=== PATIENT | female | born 1960 | race Caucasian/White ===

== ENCOUNTER 2016-09-08 14:50 | Emergency (ER) | payer OTHER ==
[~2016-09-08 14:50] MED LIST: LEVO88TA2 PO; LOSA1TAB16 PO
[2016-09-08 14:55] VITALS: BP 177/89
[2016-09-08] MEDS ORDERED: PHENAZOPYRIDINE 200 MG TABLET. PO ONE (15:15)
[2016-09-08] MEDS ORDERED: PHENAZOPYRIDINE 100 MG TABLET. ONE (15:24)
--- NOTE | 2016-09-08 15:40 | ED.ADGEN ---
Past History Past Medical History: CAD, Hypothyroid Past Surgical History: , Hysterectomy Alcohol Use: None Drug Use: None Adult General Chief Complaint Chief Complaint Diarrhea HPI HPI Patient is a 56-year-old female presents with a suprapubic pain, diarrhea for the past 2 days. Patient states pain is migratory worse with bowel movements she denies pain in her symptoms after bowel movements. Reports fever 103 last night. No fever today. Denies, vomiting, flank pain. Patient reports some urinary urgency frequency. Denies bloody stools. Reports dark stools last night , which has since cleared. Remote history of diverticular disease. No recent antibiotics Review of Systems Review of Systems Review symptoms as per history of present illness. Current Medications Current Medications Current Medications Medications (Trade) Dose Ordered Sig/Yanna Start Time Stop Time Status Last Admin Dose Admin Phenazopyridine HCl (Pyridium) 100 mg STK-MED ONCE 09/08/16 15:24 09/08/16 15:25 DC Allergies Allergies Allergies Coded Allergies Type Severity Reaction Last Updated Verified No Known Drug Allergies 03/08/15 No Physical Exam Physical Exam Constitutional: Well developed, well nourished, no acute distress, non-toxic appearance. HENT: Normocephalic, atraumatic, bilateral external ears normal, oropharynx moist, no oral exudates, nose normal. Eyes: PERRLA, EOMI, conjunctiva normal. Neck: Normal range of motion, no tenderness. Cardiovascular:Heart rate regular rhythm, no murmur. Lungs & Thorax: Bilateral breath sounds clear to auscultation. Abdomen: Bowel sounds normal, soft, no tenderness, no masses, no pulsatile masses. Skin: Warm, dry. Back: No tenderness, no CVA tenderness. Extremities: No tenderness, no cyanosis, no clubbing, ROM intact, no edema. Neurologic: Alert and oriented X 3, normal motor function, normal sensory function, no focal deficits noted. Psychologic: Affect normal, judgement normal, mood normal. Current Patient Data Vital Signs Vital Signs Date Time Temp Pulse Resp B/P (MAP) Pulse Ox O2 Delivery O2 Flow Rate FiO2 09/08/16 14:55 98.7 72 16 98 Room Air Lab Results Laboratory Tests Test 09/08/16 15:15 09/08/16 16:30 Urine Collection Type Unknown Urine Color Straw Urine Clarity Hazy Urine pH 5.5 Urine Specific [place] 1.020 Urine Protein Trace (NEG-TRACE) Urine Glucose (UA) Neg mg/dL (NEG) Urine Ketones (Stick) Neg mg/dL (NEG) Urine Blood Mod (NEG) Urine Nitrite Pos (NEG) Urine Bilirubin Neg (NEG) Urine Urobilinogen Dipstick 0.2 mg/dL (0.2 mg/dL) Urine Leukocyte Esterase Small (NEG) Urine RBC 1-2 /HPF (0-2) Urine WBC 5-10 /HPF (0-4) Urine Squamous Epithelial Cells Occ /LPF Urine Amorphous Sediment Present /HPF Urine Bacteria Few /HPF (0-FEW) Urine Mucus Slight /LPF White Blood Count 6.3 x10^3/uL (4.0-11.0) Red Blood Count 4.58 x10^6/uL (3.50-5.40) Hemoglobin 13.4 g/dL (12.0-15.5) Hematocrit 39.3 % (36.0-47.0) Mean Corpuscular Volume 86 fL (79-100) Mean Corpuscular Hemoglobin 29 pg (25-35) Mean Corpuscular Hemoglobin Concent 34 g/dL (31-37) Red Cell Distribution Width 13.5 % (11.5-14.5) Platelet Count 194 x10^3/uL (140-400) Neutrophils (%) (Auto) 59 % (31-73) Lymphocytes (%) (Auto) 27 % (24-48) Monocytes (%) (Auto) 8 % (0-9) Eosinophils (%) (Auto) 5 % (0-3) H Basophils (%) (Auto) 0 % (0-3) Neutrophils # (Auto) 3.8 x10^3uL (1.8-7.7) Lymphocytes # (Auto) 1.7 x10^3/uL (1.0-4.8) Monocytes # (Auto) 0.5 x10^3/uL (0.0-1.1) Eosinophils # (Auto) 0.3 x10^3/uL (0.0-0.7) Basophils # (Auto) 0.0 x10^3/uL (0.0-0.2) Sodium Level 141 mmol/L (136-145) Potassium Level 3.8 mmol/L (3.5-5.1) Chloride Level 106 mmol/L (98-107) Carbon Dioxide Level 29 mmol/L (21-32) Anion Gap 6 (6-14) Blood Urea Nitrogen 11 mg/dL (7-20) Creatinine 1.0 mg/dL (0.6-1.0) Estimated GFR (Cockcroft-Gault) 57.4 BUN/Creatinine Ratio 11 (6-20) Glucose Level 96 mg/dL (70-99) Calcium Level 8.9 mg/dL (8.5-10.1) Total Bilirubin 0.3 mg/dL (0.2-1.0) Aspartate Amino Transferase (AST) 16 U/L (15-37) Alanine Aminotransferase (ALT) 19 U/L (14-59) Alkaline Phosphatase 80 U/L (46-116) Total Protein 7.1 g/dL (6.4-8.2) Albumin 3.6 g/dL (3.4-5.0) Albumin/Globulin Ratio 1.0 (1.0-1.7) EKG EKG [] Radiology/Procedures Radiology/Procedures [] Course & Med Decision Making Course & Med Decision Making Pertinent Labs and Imaging studies reviewed. (See chart for details) [Patient's abdomen remains soft, nontender. Patient reports only lower abdominal pain with bowel movement. Concern for infectious diarrhea given fever and report of possible blood in stools. Patient's afebrile nontoxic, with normal vital signs and the ED. Initial lab work reassuring. Stool culture sent to lab. Patient instructed to follow-up with PCP for results. Final Impression Final Impression [1. abdominal pain 2. diarrhea] Problems: Dragon Disclaimer Dragon Disclaimer This electronic medical record was generated, in whole or in part, using a voice recognition dictation system. REBECCA LEROY DO Sep 08, 2016 15:40
[2016-09-08 15:44] LABS: BILIRUBIN,URINE NEG (NEG); CLARITY,URINE HAZY; COLOR,URINE STRAW; GLUCOSE,URINE NEG (NEG); NITRITE,URINE POS (NEG); UROBILINOGEN,URINE 0.2 mg/dL (0.2 mg/dL)
[2016-09-08 15:45] LABS: AMORPHOUS SEDIMENT,UR PRESENT /HPF; BACTERIA,URINE FEW /HPF (0-FEW); SQUAMOUS EPITHELIAL CELL,UR OCC /LPF
[2016-09-08 16:54] LABS: BASO % 0 % (0-3); EOS # 0.3 x10^3/uL (0.0-0.7); EOS % 5 % (0-3); HEMATOCRIT 39.3 % (36.0-47.0); HEMOGLOBIN 13.4 g/dL (12.0-15.5); LYMPH # 1.7 x10^3/uL (1.0-4.8); LYMPH % 27 % (24-48); MEAN CORPUSCULAR HEMOGLOBIN 29 pg (25-35); MEAN CORPUSCULAR HGB CONC 34 g/dL (31-37); MEAN CORPUSCULAR VOLUME 86 fL (79-100); MONO # 0.5 x10^3/uL (0.0-1.1); MONO % 8 % (0-9); NEUT # 3.8 x10^3uL (1.8-7.7); NEUT % 59 % (31-73); PLATELET COUNT 194 x10^3/uL (140-400); RED BLOOD COUNT 4.58 x10^6/uL (3.50-5.40); RED CELL DISTRIBUTION WIDTH 13.5 % (11.5-14.5); WHITE BLOOD COUNT 6.3 x10^3/uL (4.0-11.0)
[2016-09-08 17:03] LABS: ALBUMIN 3.6 g/dL (3.4-5.0); CALCIUM 8.9 mg/dL (8.5-10.1); GFR 57.4; POTASSIUM 3.8 mmol/L (3.5-5.1); TOTAL BILIRUBIN 0.3 mg/dL (0.2-1.0); TOTAL PROTEIN 7.1 g/dL (6.4-8.2)
[2016-09-08] MEDS ORDERED: CIPROFLOXACIN HCL 500 MG TABLET PO ONE (17:45)
[2016-09-08] MEDS ORDERED: metroNIDAZOLE 500 MG TABLET PO ONE (17:45)
[2016-09-08] MEDS ORDERED: CIPROFLOXACIN HCL 500 MG TABLET ONE (17:54)
[2016-09-08 18:39] LABS: FECAL OB PT POSITIVE (NEG)
== END 2016-09-08 18:04 | disposition home or self-care (01) ==
LOC: ER 14:50
DX: R10.30 Lower abdominal pain, unspecified (principal); R19.7 Diarrhea, unspecified; R50.9 Fever, unspecified; E03.9 Hypothyroidism, unspecified; I25.10 Atherosclerotic heart disease of native coronary artery without angina pectoris
CPT/HCPCS: 36415; 80053; 81001; 82274; 85027; 87040; 87086; 87324; 99284

== ENCOUNTER → 2016-09-09 | Outpatient (CLI) | payer OTHER ==
[2016-09-08 14:55] VITALS: BP 177/89
== END ==
LOC: LAB 12:25
PROVIDERS: ATTEND Emergency Medicine
DX: R19.7 Diarrhea, unspecified (principal)
CPT/HCPCS: 87045

== ENCOUNTER 2018-09-24 12:23 | Emergency (ER) | payer OTHER ==
[~2018-09-24] VITALS: Ht 172.7 cm; Wt 97.1 kg
[~2018-09-24 12:23] MED LIST changes: -LOSA1TAB16 PO; +LOSA1TAB19 PO
[2018-09-24] MEDS ORDERED: MECLIZINE 12.5 MG TABLET. PO STA (12:49)
[2018-09-24] MEDS ORDERED: ONDANSETRON PF 4 MG/2 ML VIAL. IV ONE (13:00)
[2018-09-24 13:15] LABS: BASO % 1 % (0-3); EOS # 0.3 x10^3/uL (0.0-0.7); EOS % 6 % (0-3); HEMATOCRIT 38.2 % (36.0-47.0); HEMOGLOBIN 13.1 g/dL (12.0-15.5); LYMPH % 50 % (24-48); MEAN CORPUSCULAR HEMOGLOBIN 29 pg (25-35); MEAN CORPUSCULAR HGB CONC 34 g/dL (31-37); MEAN CORPUSCULAR VOLUME 85 fL (79-100); MONO # 0.5 x10^3/uL (0.0-1.1); MONO % 8 % (0-9); NEUT # 2.2 x10^3uL (1.8-7.7); NEUT % 36 % (31-73); PLATELET COUNT 228 x10^3/uL (140-400); RED BLOOD COUNT 4.48 x10^6/uL (3.50-5.40); RED CELL DISTRIBUTION WIDTH 13.2 % (11.5-14.5)
--- NOTE | 2018-09-24 13:18 | PHYS DOC ---
Past History Past Medical History: CAD, Hypothyroid Past Surgical History: , Hysterectomy Alcohol Use: None Drug Use: None Adult General Chief Complaint Chief Complaint: DIZZY/LIGHT HEADED HPI HPI 58-year-old female presents with 9-11 day history of fever. The patient started with some congestion symptoms. She went to [facility] and they diagnosed her with possible sinusitis. She was placed on Augmentin. She has also been to [facility] and [facility] giving conflicting reports as to whether or not she has sinusitis. They wanted her to have a CT to rule out pulmonary embolus, but the patient didn't want to. She has an allergy to IV contrast. In total, the patient has been on 2 rounds of Augmentin and is only on day 3 of doxycycline. She still says she is getting fevers up to 102. These are mostly at night. She has been taking Tylenol [id number]-thqor. She denies feeling short of breath. She denies chest pain or diaphoresis. She is here today because none of the places she has been to so far have made her better. She thinks she had a peripheral a pulmonary embolus 2 years ago, but she only took Xarelto for a week. Review of Systems Review of Systems Constitutional: Fever, fatigue [] Eyes: Denies change in visual acuity, redness, or eye pain [] HENT: Denies nasal congestion or sore throat [] Respiratory: Denies cough or shortness of breath [] Cardiovascular: No additional information not addressed in HPI [] GI: Denies abdominal pain, nausea, vomiting, bloody stools or diarrhea [] : Denies dysuria or hematuria [] Musculoskeletal: Denies back pain or joint pain [] Integument: Denies rash or skin lesions [] Neurologic: Denies headache, focal weakness or sensory changes [] Endocrine: Denies polyuria or polydipsia [] All other systems were reviewed and found to be within normal limits, except as documented in this note. Current Medications Current Medications Current Medications Medications (Trade) Dose Ordered Sig/Yanna Start Time Stop Time Status Last Admin Dose Admin Meclizine HCl (Antivert) 25 mg 1X STAT 09/24/18 12:49 09/24/18 12:50 DC Ondansetron HCl (Zofran) 4 mg 1X ONCE 09/24/18 13:00 09/24/18 13:01 DC 09/24/18 13:11 4 MG Allergies Allergies Allergies Coded Allergies Type Severity Reaction Last Updated Verified Iodinated Contrast- Oral and IV Dye Allergy Unknown 09/24/18 Yes Physical Exam Physical Exam Constitutional: Well developed, well nourished, no acute distress, non-toxic appearance. [] HENT: Normocephalic, atraumatic, bilateral external ears normal, oropharynx moist, no oral exudates, nose normal. [] Eyes: PERRLA, EOMI, conjunctiva normal, no discharge. [] Neck: Normal range of motion, no tenderness, supple, no stridor. [] Cardiovascular:Heart rate regular rhythm, no murmur [] Lungs & Thorax: Bilateral breath sounds clear to auscultation [] Abdomen: Bowel sounds normal, soft, no tenderness, no masses, no pulsatile masses. [] Skin: Warm, dry, no erythema, no rash. [] Back: No tenderness, no CVA tenderness. [] Extremities: No tenderness, no cyanosis, no clubbing, ROM intact, no edema. [] Neurologic: Alert and oriented X 3, normal motor function, normal sensory function, no focal deficits noted. [] Psychologic: Affect normal, judgement normal, mood normal. [] EKG EKG [] Radiology/Procedures Radiology/Procedures [] Impressions: Examination: Bilateral Lower Extremity Venous Doppler Ultrasound History: Pulmonary embolism Comparison: None Procedure: Ruby scale, color flow 2D and spectal waveform analysis images are obtained with and without compression in the area of the common femoral vein, superficial femoral vein - femoral vein junction, main femoral vein (superficial femoral vein) and popliteal vein. Veins of the proximal calf are also imaged. Findings: There is normal duplex flow, color flow and compressibility of all visualized vein segments. No evidence of deep venous thrombus is present. Impression: No evidence of DVT in the visualized bilateral lower extremity venous system. Electronically signed by: Cayetano Galeas MD (09/24/2018 4:15 PM) [facility] DICTATED AND SIGNED BY: CAYETANO GALEAS MD DATE: 09/24/18 0689 CC: REBECCA BLUE DO; [facility] BISHOP ~ Examination: CT angiography chest HISTORY: History of elevated d-dimer COMPARISON: None available TECHNIQUE: Axial CT angiographic images of chest were performed with IV contrast. Coronal and sagittal 3-D MIP reformats are performed Exposure: One or more of the following individualized dose reduction techniques were utilized for this examination: 1. Automated exposure control 2. Adjustment of the mA and/or kV according to patient size 3. Use of iterative reconstruction technique FINDINGS: The central airways are patent. Coronary artery calcifications. Small mediastinal lymph nodes identified with the largest measuring 1.2 cm. There is no evidence of filling defect identified in the main pulmonary arterial trunk and right and left main pulmonary arteries and the visualized lobar, segmental branch of the pulmonary arteries. Mild emphysematous changes identified in the bilateral lungs. Mild bibasilar lung airspace opacities likely atelectasis or infiltrates. 6 mm nodule identified in the right lower lobe of the lung. The visualized liver, spleen, adrenals grossly appears unremarkable. Moderate degenerative changes thoracic spine. IMPRESSION: 1. No evidence of pulmonary embolism. 2. Mild lung emphysematous changes. A 6 mm nodule identified in the right lower lobe of the lung. Recommend follow-up per Fleischner Society guidelines in 6 months. 3. Mild bibasilar lung airspace opacities likely atelectasis or infiltrates. 4. Coronary artery calcifications. Electronically signed by: Cayetano Galeas MD (09/24/2018 3:47 PM) [facility] DICTATED AND SIGNED BY: CAYETANO GALEAS MD DATE: 09/24/18 1547 CC: REBECCA BLUE DO; [facility] BISHOP ~ Course & Med Decision Making Course & Med Decision Making Pertinent Labs and Imaging studies reviewed. (See chart for details) The patient's labs are significant for an elevated d-dimer. A CTA was performed and was negative for PE. It does show some emphysematous change as well as bibasilar atelectasis or infiltrate. The patient is oriented on doxycycline so infiltrate seems less likely. She does have a fever however, though we have not measured one in the ED. Her bilateral lower extremity ultrasound is unremarkable. I'm not sure why the patient is having fevers. Based on x-ray, I feel compelled to treat for possibility of pneumonia. I will treat her with levofloxacin for 7 days. I have also recommended the patient follow up with her PCP and consider hematology and rheumatology referrals. She is stable for discharge at this time. The patient does have a contrast allergy in her chart. A mild rash that was resolved with single dose Benadryl. She was appropriately pretreated with Pepcid, Solu-Medrol, and Benadryl. She had no complications with her contrast for her scan. [] Dragon Disclaimer Dragon Disclaimer This electronic medical record was generated, in whole or in part, using a voice recognition dictation system. Departure Departure: Impression: Primary Impression: Fever, unknown origin Additional Impression: CAP (community acquired pneumonia) Disposition: HOME, SELF-CARE Condition: STABLE Referrals: EUN BISHOP (PCP) Patient Instructions: Fever of Unknown Origin, Pneumonia, Adult, Hfyk-qy-Arla [facility]s Levofloxacin (LEVOFLOXACIN) 750 Mg Tablet 1 TAB PO DAILY for pneumonia, #7 TAB Prov: REBECCA BLUE DO 09/24/18 Problem Qualifiers Additional Impression: CAP (community acquired pneumonia) Laterality: unspecified laterality Qualified Codes: J18.9 - Pneumonia, unspecified organism REBECCA BLUE DO Sep 24, 2018 13:18
[2018-09-24 13:21] LABS: ALBUMIN 3.6 g/dL (3.4-5.0); CALCIUM 9.2 mg/dL (8.5-10.1); CREATININE 0.9 mg/dL (0.6-1.0); GFR 64.3; TOTAL BILIRUBIN 0.3 mg/dL (0.2-1.0); TOTAL PROTEIN 7.2 g/dL (6.4-8.2)
[2018-09-24 14:06] LABS: BILIRUBIN,URINE NEG (NEG); CLARITY,URINE CLEAR; COLOR,URINE YELLOW; GLUCOSE,URINE NEG (NEG); NITRITE,URINE NEG (NEG); UROBILINOGEN,URINE 0.2 mg/dL (0.2 mg/dL)
[2018-09-24 14:07] LABS: BACTERIA,URINE 0 /HPF (0-FEW); RBC,URINE RARE /HPF (0-2); SQUAMOUS EPITHELIAL CELL,UR OCC /LPF
[2018-09-24 14:09] VITALS: BP 133/79
[2018-09-24] MEDS ORDERED: methylPREDNISolone SOD SUCC PF 125 MG/2 ML VIAL. IV ONE (14:45)
[2018-09-24] MEDS ORDERED: diphenhydrAMINE 50 MG/ML VIAL IVP ONE (14:45)
[2018-09-24] MEDS ORDERED: FAMOTIDINE 20 MG/2 ML VIAL IVP ONE (14:45)
[2018-09-24] MEDS ORDERED: IOHEXOL 350 MG/ML 100 ML VIAL. IV ONE (15:00)
--- NOTE | 2018-09-24 15:50 | RAD ---
Examination: CT angiography chest HISTORY: History of elevated d-dimer COMPARISON: None available TECHNIQUE: Axial CT angiographic images of chest were performed with IV contrast. Coronal and sagittal 3-D MIP reformats are performed Exposure: One or more of the following individualized dose reduction techniques were utilized for this examination: 1. Automated exposure control 2. Adjustment of the mA and/or kV according to patient size 3. Use of iterative reconstruction technique FINDINGS: The central airways are patent. Coronary artery calcifications. Small mediastinal lymph nodes identified with the largest measuring 1.2 cm. There is no evidence of filling defect identified in the main pulmonary arterial trunk and right and left main pulmonary arteries and the visualized lobar, segmental branch of the pulmonary arteries. Mild emphysematous changes identified in the bilateral lungs. Mild bibasilar lung airspace opacities likely atelectasis or infiltrates. 6 mm nodule identified in the right lower lobe of the lung. The visualized liver, spleen, adrenals grossly appears unremarkable. Moderate degenerative changes thoracic spine. IMPRESSION: 1. No evidence of pulmonary embolism. 2. Mild lung emphysematous changes. A 6 mm nodule identified in the right lower lobe of the lung. Recommend follow-up per Fleischner Society guidelines in 6 months. 3. Mild bibasilar lung airspace opacities likely atelectasis or infiltrates. 4. Coronary artery calcifications. Electronically signed by: Cayetano Galeas MD (09/24/2018 3:47 PM) [id number]
--- NOTE | 2018-09-24 16:17 | RAD ---
Examination: Bilateral Lower Extremity Venous Doppler Ultrasound History: Pulmonary embolism Comparison: None Procedure: Ruby scale, color flow 2D and spectal waveform analysis images are obtained with and without compression in the area of the common femoral vein, superficial femoral vein - femoral vein junction, main femoral vein (superficial femoral vein) and popliteal vein. Veins of the proximal calf are also imaged. Findings: There is normal duplex flow, color flow and compressibility of all visualized vein segments. No evidence of deep venous thrombus is present. Impression: No evidence of DVT in the visualized bilateral lower extremity venous system. Electronically signed by: Cayetano Galeas MD (09/24/2018 4:15 PM) [id number]
[2018-09-24] MEDS ORDERED: LEVO750T5 PO (16:37)
[2018-09-25] MEDS ORDERED: LOSA1TAB7 PO (23:22)
[2018-09-25] MEDS ORDERED: LEVO100T5 PO (23:22)
[2018-09-25] MEDS ORDERED: LANS15TA6 PO (23:22)
[2018-09-25] MEDS ORDERED: ASCO100T4 PO (23:24)
[2018-09-25] MEDS ORDERED: ZINC50TA2 PO (23:24)
== END 2018-09-24 16:45 | disposition home or self-care (01) ==
LOC: ER 12:23
DX: J18.9 Pneumonia, unspecified organism (principal); E03.9 Hypothyroidism, unspecified; I25.10 Atherosclerotic heart disease of native coronary artery without angina pectoris; Z91.041 Radiographic dye allergy status
CPT/HCPCS: 36415; 71275; 80053; 81001; 85025; 85379; 93970; 96374; 96375; 99285; J1200; J2405; J2930; J3490; J8597; Q9967

== ENCOUNTER 2018-09-25 17:21 | Inpatient (IN) | payer OTHER ==
[~2018-09-25] VITALS: Ht 172.7 cm; Wt 95.4 kg
[~2018-09-25 17:21] MED LIST changes: +LEVO750T5 PO
[2018-09-25] MEDS ORDERED: IV NORMAL SALINE 1,000ML 1,000 ML IV ONE (18:00)
[2018-09-25] MEDS ORDERED: IV RINGERS SOLUTION,LACTATED 1,000 ML IV SCH (18:25)
--- NOTE | 2018-09-25 18:25 | ED.ADGEN ---
Past History Past Medical History: Anxiety, Arthritis, CAD, Hypothyroid, Liver Disease, Sinusitis, Other Past Medical History HX LYME DZ Past Surgical History: Other Smoking: Quit Greater Than 1 Year Additional Smoking Information: SECOND HAND TOB- Alcohol Use: None Drug Use: None Adult General Chief Complaint Chief Complaint " ... I ve been sick for two weeks...fevers ... hypertension.... not feeling right.. I ve been to [facility].. I ve been here.. I ve been to ... started me on Doxycycline yesterday.... I had other course of antibiotic... even Rocephin... but nothing has help... " HPI HPI Patient is a 58 year old female who presents with hx of arthralgia, fevers, chills, malaise and hypertension. Pt. had somewhat irregular course of malaise and fever x 2 weeks in spite of courses of antibiotics. Pt has been on two rounds of Augmentin, Rocephin, Levaquin and Doxycycline. Has has a possible diagnosis of sinusitis at [facility]. Pt. seen here on 09/08, 09/09 and 09/24 for her complaints as well as visits to [facility] and . Pt. denies any travel. Pt denies immunosuppression. Pt. Fever and malaise has been persistent but mainly at night. Has been taking Tylenol for the discomfort and fevers. recently had an upper respiratory infection prior to her illness. He is now well. . Dog has recently been sick. Patient does have a history of hypertension but only takes her hypertensive meds every other day or when she needs some??? Pt. s primary care is [facility]. Pt. had prior hx PE, but only took Xarelto for a week. 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 No follow up titers. Review of Systems Review of Systems Constitutional:Hx. fever or chills []Malaise Eyes: Denies change in visual acuity, redness, or eye pain [] HENT: Hx of nasal congestion . Respiratory: Denies cough or shortness of breath [] Cardiovascular: No additional information not addressed in HPI [] GI: Denies abdominal pain, , vomiting, bloody stools or diarrhea []Hx. of nausea : Hx of dysuria . Musculoskeletal: Hx. of myalgia and arthralgia. Generalized fatigue Integument: Denies rash or skin lesions [] Neurologic: Denies headache, focal weakness or sensory changes [] Endocrine: Denies polyuria or polydipsia [] All other systems were reviewed and found to be within normal limits, except as documented in this note. Family History Family History had a URI, Dog is not well. Current Medications Current Medications Current Medications Medications (Trade) Dose Ordered Sig/Yanna Start Time Stop Time Status Last Admin Dose Admin Acetaminophen (Tylenol) 650 mg PRN Q4HRS PRN 09/25/18 21:00 09/25/18 21:58 DC Albuterol/ Ipratropium (Duoneb) 3 ml RTQID 09/26/18 08:00 09/26/18 08:00 DC Doxycycline Hyclate (Vibra-Tab) 100 mg BID 09/26/18 09:00 09/26/18 09:00 DC Enoxaparin Sodium (Lovenox 80mg Syringe) 80 mg 1X ONCE 09/25/18 21:00 09/25/18 21:01 DC 09/25/18 21:03 80 MG Lactated Ringer's 1,000 ml @ 160 mls/hr Q6H15M 09/25/18 21:00 09/25/18 21:58 DC Ondansetron HCl (Zofran) 4 mg PRN Q4HRS PRN 09/25/18 21:00 09/25/18 21:58 DC Sodium Chloride 1,000 ml @ 1,000 mls/hr 1X ONCE 09/25/18 18:00 09/25/18 18:59 DC Allergies Allergies Allergies Coded Allergies Type Severity Reaction Last Updated Verified Iodinated Contrast- Oral and IV Dye Allergy Unknown 09/24/18 Yes Physical Exam Physical Exam Constitutional: no acute distress, non-toxic appearance. [] HENT: Normocephalic, atraumatic, bilateral external ears normal, oropharynx moist, no oral exudates, nose normal. [] Eyes: PERRLA, EOMI, conjunctiva normal, no discharge. [] Neck: Normal range of motion, no tenderness, supple, no stridor. [] Cardiovascular:Heart rate regular rhythm, no murmur [] Lungs & Thorax: Bilateral breath sounds equal at apexes with basilar crackles and few scattered wheezes on auscultation [] Abdomen: Bowel sounds normal, soft, no tenderness, no masses, no pulsatile masses. [] Old surgical scars Skin: Warm, dry, no erythema, no rash. [] Back: No tenderness, no CVA tenderness. [] Extremities: No tenderness, no cyanosis, no clubbing, ROM intact, no edema. [] No cording appreciated in legs Neurologic: Alert and oriented X 3, normal motor function, normal sensory function, no focal deficits noted. [] Psychologic: Affect anxiousl, judgement normal, mood normal. [] Current Patient Data Vital Signs Vital Signs Date Time Temp Pulse Resp B/P (MAP) Pulse Ox O2 Delivery O2 Flow Rate FiO2 09/25/18 20:05 75 19 145/76 (99) 95 Room Air 09/25/18 17:34 99.0 Lab Results Laboratory Tests Test 09/25/18 17:55 09/25/18 18:43 09/25/18 19:05 09/25/18 19:29 Urine Collection Type Unknown Urine Color Straw Urine Clarity Clear Urine pH 7.0 Urine Specific Bluford 1.010 Urine Protein Neg (NEG-TRACE) Urine Glucose (UA) Neg mg/dL (NEG) Urine Ketones (Stick) Neg mg/dL (NEG) Urine Blood Neg (NEG) Urine Nitrite Neg (NEG) Urine Bilirubin Neg (NEG) Urine Urobilinogen Dipstick 0.2 mg/dL (0.2 mg/dL) Urine Leukocyte Esterase Neg (NEG) Urine RBC 0 /HPF (0-2) Urine WBC 0 /HPF (0-4) Urine Squamous Epithelial Cells Occ /LPF Urine Bacteria 0 /HPF (0-FEW) Urine Opiates Screen Neg (NEG) Urine Methadone Screen Neg (NEG) Urine Barbiturates Neg (NEG) Urine Phencyclidine Screen Neg (NEG) Urine Amphetamine/Methamphetamine Neg (NEG) Urine Benzodiazepines Screen Neg (NEG) Urine Cocaine Screen Neg (NEG) Urine Cannabinoids Screen Neg (NEG) Urine Ethyl Alcohol Neg (NEG) Influenza Type A (Rapid) Negative (NEGATIVE) Influenza Type B (Rapid) Negative (NEGATIVE) White Blood Count 6.7 x10^3/uL (4.0-11.0) Red Blood Count 4.49 x10^6/uL (3.50-5.40) Hemoglobin 13.3 g/dL (12.0-15.5) Hematocrit 38.4 % (36.0-47.0) Mean Corpuscular Volume 86 fL (79-100) Mean Corpuscular Hemoglobin 30 pg (25-35) Mean Corpuscular Hemoglobin Concent 35 g/dL (31-37) Red Cell Distribution Width 13.5 % (11.5-14.5) Platelet Count 254 x10^3/uL (140-400) Neutrophils (%) (Auto) 51 % (31-73) Lymphocytes (%) (Auto) 36 % (24-48) Monocytes (%) (Auto) 10 % (0-9) H Eosinophils (%) (Auto) 3 % (0-3) Basophils (%) (Auto) 1 % (0-3) Neutrophils # (Auto) 3.4 x10^3uL (1.8-7.7) Lymphocytes # (Auto) 2.4 x10^3/uL (1.0-4.8) Monocytes # (Auto) 0.7 x10^3/uL (0.0-1.1) Eosinophils # (Auto) 0.2 x10^3/uL (0.0-0.7) Basophils # (Auto) 0.1 x10^3/uL (0.0-0.2) Erythrocyte Sedimentation Rate 27 (0-25) H Prothrombin Time 10.0 SEC (9.4-11.4) Prothrombin Time INR 1.0 (0.9-1.1) PTT 24 SEC (23-33) D-Dimer (Nany) 2.74 mg/L (0.00-0.50) H Magnesium Level 2.1 mg/dL (1.8-2.4) Total Bilirubin 0.5 mg/dL (0.2-1.0) Direct Bilirubin 0.1 mg/dL (0.0-0.2) Aspartate Amino Transferase (AST) 55 U/L (15-37) H Alanine Aminotransferase (ALT) 101 U/L (14-59) H Alkaline Phosphatase 118 U/L (46-116) H Creatine Kinase 72 U/L (26-192) Troponin I Quantitative < 0.017 ng/mL (0-0.055) C-Reactive Protein 5.1 mg/L (0-3.3) H SF-Tjm-M-Type Natriuretic Peptide 263 pg/mL (0-124) H Total Protein 7.6 g/dL (6.4-8.2) Albumin 3.6 g/dL (3.4-5.0) Lipase 131 U/L (73-393) Sodium Level 138 mmol/L (136-145) Potassium Level 3.8 mmol/L (3.5-5.1) Chloride Level 100 mmol/L (98-107) Carbon Dioxide Level 28 mmol/L (21-32) Anion Gap 10 (6-14) Blood Urea Nitrogen 16 mg/dL (7-20) Creatinine 1.0 mg/dL (0.6-1.0) Estimated GFR (Cockcroft-Gault) 56.9 Glucose Level 117 mg/dL (70-99) H Calcium Level 9.6 mg/dL (8.5-10.1) EKG EKG My interpretation EKG shows a sinus rhythm at 76 bpm. No findings acute STEMI.[] Radiology/Procedures Radiology/Procedures My interpretation of chest x-ray shows some mild emphysematous changes and basilar atelectasis versus infiltrate.[] Review CT and US on 09/24- No DVT, emphysematous . 6mm Rt. lower lung nodule. Bibasilar atelectasis or infiltrates. Coronary [place] [address] IMAGING REPORT Signed PATIENT: SANNA DIAZ ACCOUNT: [id number] : 1960 LOCATION: ER AGE: 58 SEX: F EXAM STATUS: REG ER ORD. PHYSICIAN: ALLIE GILBERT MD REASON: Fever, pain. Hx recent sinusitis dx PROCEDURE: CT HEAD AND MAXILLOFACIAL WO CT head without contrast. Maxillofacial CT without contrast. HISTORY: Fever, facial pain, sinusitis. PQRS statement: CT scans at this facility use dose reduction including either automated exposure control, iterative reconstructions, and /or weight based radiation dosing via mA and kV modification when appropriate to reduce radiation dose to as low as reasonably achievable. TECHNIQUE: Noncontrast CT imaging of the head and facial bones with multiplanar reconstructions. CT head findings: No intracranial hemorrhage, mass, hydrocephalus or infarction. No acute ischemic change. 1 cm osteoma of the right lateral frontal calvarium outer table underlying the scalp. Imaged orbits and mastoids are unremarkable. IMPRESSION: No acute intracranial CT abnormality. Maxillofacial CT findings: Small cyst along the floor the left maxillary sinus with minimal mucosal thickening. No opacification, masses or fluid within the frontal, ethmoid, sphenoid or maxillary sinuses. Conchal bullosa of the middle nasal turbinates. Maxilla, mandible and orbits are intact. No orbital edema or hematoma. IMPRESSION: Facial bones intact. No evidence of sinusitis. Mild mucosal thickening and a small cyst at the floor of the left maxillary sinus. Exposure: One or more of the following individualized dose reduction techniques were utilized for this examination: 1. Automated exposure control 2. Adjustment of the mA and/or kV according to patient size 3. Use of iterative reconstruction technique Course & Med Decision Making Course & Med Decision Making Pertinent Labs and Imaging studies reviewed. (See chart for details) Discussed with pt. spinal tap, reviewed risks vs benefits . Pt. declines spinal tap at this time. Option tx. and further eval. discussed with pt. and daughter. Will admit for further eval. Will continue Doxycycline. Lovenox. US upper ext. for DVT. Suspect this may be viral syndrome or inflammatory disorder. [] Final Impression Final Impression 1. Fevers[]/ Malaise 2. Atypical Bibasilar Atelectasis vs Pneumonia 3. Mild Emphysema 4. Coronary Calcifications Hx. CAD 5. Hx Hypo thyroid 6. Rt. Lateral frontal 1 cm Osteoma under scalp 7. Elevated D-dimer 2.74 8. Elevated BNP 263 9. Elevated CRP 5.1, ESR 27 10.Elevated AST55,ALT 101,Alk Phos 118. Dragon Disclaimer Dragon Disclaimer This electronic medical record was generated, in whole or in part, using a voice recognition dictation system. Discharge Summary Visit Information Final Diagnosis Problems Medical Problems: (1) Fever Status: Acute Brief Hospital Course Allergies Allergies Coded Allergies Type Severity Reaction Last Updated Verified Iodinated Contrast- Oral and IV Dye Allergy Unknown 09/24/18 Yes Vital Signs Vital Signs Date Time Temp Pulse Resp B/P (MAP) Pulse Ox O2 Delivery O2 Flow Rate FiO2 09/25/18 22:29 98.6 71 18 153/77 (102) 95 Room Air Lab Results Laboratory Tests Test 09/25/18 17:55 09/25/18 18:43 09/25/18 19:05 09/25/18 19:29 Urine Collection Type Unknown Urine Color Straw Urine Clarity Clear Urine pH 7.0 Urine Specific Bluford 1.010 Urine Protein Neg (NEG-TRACE) Urine Glucose (UA) Neg mg/dL (NEG) Urine Ketones (Stick) Neg mg/dL (NEG) Urine Blood Neg (NEG) Urine Nitrite Neg (NEG) Urine Bilirubin Neg (NEG) Urine Urobilinogen Dipstick 0.2 mg/dL (0.2 mg/dL) Urine Leukocyte Esterase Neg (NEG) Urine RBC 0 /HPF (0-2) Urine WBC 0 /HPF (0-4) Urine Squamous Epithelial Cells Occ /LPF Urine Bacteria 0 /HPF (0-FEW) Urine Opiates Screen Neg (NEG) Urine Methadone Screen Neg (NEG) Urine Barbiturates Neg (NEG) Urine Phencyclidine Screen Neg (NEG) Urine Amphetamine/Methamphetamine Neg (NEG) Urine Benzodiazepines Screen Neg (NEG) Urine Cocaine Screen Neg (NEG) Urine Cannabinoids Screen Neg (NEG) Urine Ethyl Alcohol Neg (NEG) Influenza Type A (Rapid) Negative (NEGATIVE) Influenza Type B (Rapid) Negative (NEGATIVE) White Blood Count 6.7 x10^3/uL (4.0-11.0) Red Blood Count 4.49 x10^6/uL (3.50-5.40) Hemoglobin 13.3 g/dL (12.0-15.5) Hematocrit 38.4 % (36.0-47.0) Mean Corpuscular Volume 86 fL (79-100) Mean Corpuscular Hemoglobin 30 pg (25-35) Mean Corpuscular Hemoglobin Concent 35 g/dL (31-37) Red Cell Distribution Width 13.5 % (11.5-14.5) Platelet Count 254 x10^3/uL (140-400) Neutrophils (%) (Auto) 51 % (31-73) Lymphocytes (%) (Auto) 36 % (24-48) Monocytes (%) (Auto) 10 % (0-9) Eosinophils (%) (Auto) 3 % (0-3) Basophils (%) (Auto) 1 % (0-3) Neutrophils # (Auto) 3.4 x10^3uL (1.8-7.7) Lymphocytes # (Auto) 2.4 x10^3/uL (1.0-4.8) Monocytes # (Auto) 0.7 x10^3/uL (0.0-1.1) Eosinophils # (Auto) 0.2 x10^3/uL (0.0-0.7) Basophils # (Auto) 0.1 x10^3/uL (0.0-0.2) Erythrocyte Sedimentation Rate 27 (0-25) Prothrombin Time 10.0 SEC (9.4-11.4) Prothromb Time International Ratio 1.0 (0.9-1.1) Activated Partial Thromboplast Time 24 SEC (23-33) D-Dimer (Nany) 2.74 mg/L (0.00-0.50) Magnesium Level 2.1 mg/dL (1.8-2.4) Total Bilirubin 0.5 mg/dL (0.2-1.0) Direct Bilirubin 0.1 mg/dL (0.0-0.2) Aspartate Amino Transf (AST/SGOT) 55 U/L (15-37) Alanine Aminotransferase (ALT/SGPT) 101 U/L (14-59) Alkaline Phosphatase 118 U/L (46-116) Creatine Kinase 72 U/L (26-192) Troponin I Quantitative < 0.017 ng/mL (0-0.055) C-Reactive Protein 5.1 mg/L (0-3.3) TY-Tbt-N-Type Natriuretic Peptide 263 pg/mL (0-124) Total Protein 7.6 g/dL (6.4-8.2) Albumin 3.6 g/dL (3.4-5.0) Lipase 131 U/L (73-393) Sodium Level 138 mmol/L (136-145) Potassium Level 3.8 mmol/L (3.5-5.1) Chloride Level 100 mmol/L (98-107) Carbon Dioxide Level 28 mmol/L (21-32) Anion Gap 10 (6-14) Blood Urea Nitrogen 16 mg/dL (7-20) Creatinine 1.0 mg/dL (0.6-1.0) Estimated GFR (Cockcroft-Gault) 56.9 Glucose Level 117 mg/dL (70-99) Calcium Level 9.6 mg/dL (8.5-10.1) Brief Hospital Course Ms. Diaz is a 58 old female who presented with fevers. Admitted Dr. Hart Discharge Information Condition at Discharge: Improved, Stable Dischare Medications Current Medications Sodium Chloride 1,000 ml @ 1,000 mls/hr 1X ONCE IV ; Start 09/25/18 at 18:00; Stop 09/25/18 at 18:59; Status DC Lactated Ringer's 1,000 ml @ 1,000 mls/hr Q1H IV Last administered on 09/25/18at 18:34; Start 09/25/18 at 18:25; Stop 09/25/18 at 19:24; Status DC Enoxaparin Sodium (Lovenox 80mg Syringe) 80 mg 1X ONCE SQ Last administered on 09/25/18at 21:03; Start 09/25/18 at 21:00; Stop 09/25/18 at 21:01; Status DC Doxycycline Hyclate (Vibra-Tab) 100 mg 1X ONCE PO Last administered on 09/25/18at 21:02; Start 09/25/18 at 21:00; Stop 09/25/18 at 21:01; Status DC Ondansetron HCl (Zofran) 4 mg PRN Q4HRS PRN IV NAUSEA/VOMITING; Start 09/25/18 at 21:00; Stop 09/26/18 at 20:59 Acetaminophen (Tylenol) 650 mg PRN Q4HRS PRN PO FEVER; Start 09/25/18 at 21:00; Stop 09/26/18 at 20:59 Albuterol/ Ipratropium (Duoneb) 3 ml RTQID NEB ; Start 09/26/18 at 08:00; Stop 09/27/18 at 07:59 Doxycycline Hyclate (Vibra-Tab) 100 mg BID PO ; Start 09/26/18 at 09:00 Lactated Ringer's 1,000 ml @ 160 mls/hr Q6H15M IV ; Start 09/25/18 at 21:00 Active Scripts Active Levofloxacin 750 Mg Tablet 1 Tab PO DAILY Reported Vitamin C (Ascorbic Acid) 100 Mg Tablet 100 Mg PO PRN DAILY PRN Zinc (Zinc Gluconate) 50 Mg Tablet 50 Mg PO PRN DAILY PRN Prevacid (Lansoprazole) 15 Mg Tab.rap.dr 15 Mg PO DAILY Levothyroxine Sodium 100 Mcg Tablet 100 Mcg PO DAILYAC Hyzaar 100-12.5 Tablet (Losartan/Hydrochlorothiazide) 1 Each Tablet 0.5 Each PO DAILY Dragon Disclaimer This chart was dictated in whole or in part using Voice Recognition software in a busy, high-work load, and often noisy Emergency Department environment. It may contain unintended and wholly unrecognized errors or omissions. ALLIE GILBERT MD Sep 25, 2018 18:25
[2018-09-25 18:50] LABS: BARBITURATES NEG (NEG); BENZODIAZEPINES NEG (NEG); CANNABINOIDS NEG (NEG); COCAINE NEG (NEG); METHADONE NEG (NEG); OPIATES NEG (NEG); PHENCYCLIDINE NEG (NEG)
[2018-09-25 18:55] LABS: BACTERIA,URINE 0 /HPF (0-FEW); BILIRUBIN,URINE NEG (NEG); CLARITY,URINE CLEAR; COLOR,URINE STRAW; GLUCOSE,URINE NEG (NEG); NITRITE,URINE NEG (NEG); RBC,URINE 0 /HPF (0-2); SQUAMOUS EPITHELIAL CELL,UR OCC /LPF; UROBILINOGEN,URINE 0.2 mg/dL (0.2 mg/dL); WBC,URINE 0 /HPF (0-4)
[2018-09-25 18:56] LABS: AMPHETAMINE/METHAMPHETAMINE NEG (NEG)
[2018-09-25 19:19] LABS: INFLUENZA A PATIENT NEGATIVE (NEGATIVE); INFLUENZA B PATIENT NEGATIVE (NEGATIVE)
[2018-09-25 19:26] LABS: BASO # 0.1 x10^3/uL (0.0-0.2); BASO % 1 % (0-3); EOS # 0.2 x10^3/uL (0.0-0.7); EOS % 3 % (0-3); HEMATOCRIT 38.4 % (36.0-47.0); HEMOGLOBIN 13.3 g/dL (12.0-15.5); LYMPH # 2.4 x10^3/uL (1.0-4.8); LYMPH % 36 % (24-48); MEAN CORPUSCULAR HEMOGLOBIN 30 pg (25-35); MEAN CORPUSCULAR HGB CONC 35 g/dL (31-37); MEAN CORPUSCULAR VOLUME 86 fL (79-100); MONO # 0.7 x10^3/uL (0.0-1.1); MONO % 10 % (0-9); NEUT # 3.4 x10^3uL (1.8-7.7); NEUT % 51 % (31-73); PLATELET COUNT 254 x10^3/uL (140-400); RED BLOOD COUNT 4.49 x10^6/uL (3.50-5.40); RED CELL DISTRIBUTION WIDTH 13.5 % (11.5-14.5); WHITE BLOOD COUNT 6.7 x10^3/uL (4.0-11.0)
[2018-09-25 19:40] LABS: CALCIUM 9.6 mg/dL (8.5-10.1); GFR 56.9; POTASSIUM 3.8 mmol/L (3.5-5.1)
[2018-09-25 19:49] LABS: ALBUMIN 3.6 g/dL (3.4-5.0); C REACTIVE PROTEIN 5.1 mg/L (0-3.3); DIRECT BILIRUBIN 0.1 mg/dL (0.0-0.2); MAGNESIUM 2.1 mg/dL (1.8-2.4); TOTAL BILIRUBIN 0.5 mg/dL (0.2-1.0); TOTAL PROTEIN 7.6 g/dL (6.4-8.2)
--- NOTE | 2018-09-25 20:02 | RAD ---
PA and lateral chest x-ray COMPARISON: CT chest September 24, 2018. HISTORY: Fever, chills and hypertension. FINDINGS: Heart size normal. Mediastinal silhouette is normal. No pneumothorax, pulmonary opacities or pleural effusions. Thoracic mild disc osteophytes. IMPRESSION: No acute process. Electronically signed by: Henrique Valerio MD (09/25/2018 8:00 PM) [facility]
--- NOTE | 2018-09-25 20:26 | RAD ---
CT head without contrast. Maxillofacial CT without contrast. HISTORY: Fever, facial pain, sinusitis. PQRS statement: CT scans at this facility use dose reduction including either automated exposure control, iterative reconstructions, and /or weight based radiation dosing via mA and kV modification when appropriate to reduce radiation dose to as low as reasonably achievable. TECHNIQUE: Noncontrast CT imaging of the head and facial bones with multiplanar reconstructions. CT head findings: No intracranial hemorrhage, mass, hydrocephalus or infarction. No acute ischemic change. 1 cm osteoma of the right lateral frontal calvarium outer table underlying the scalp. Imaged orbits and mastoids are unremarkable. IMPRESSION: No acute intracranial CT abnormality. Maxillofacial CT findings: Small cyst along the floor the left maxillary sinus with minimal mucosal thickening. No opacification, masses or fluid within the frontal, ethmoid, sphenoid or maxillary sinuses. Conchal bullosa of the middle nasal turbinates. Maxilla, mandible and orbits are intact. No orbital edema or hematoma. IMPRESSION: Facial bones intact. No evidence of sinusitis. Mild mucosal thickening and a small cyst at the floor of the left maxillary sinus. Exposure: One or more of the following individualized dose reduction techniques were utilized for this examination: 1. Automated exposure control 2. Adjustment of the mA and/or kV according to patient size 3. Use of iterative reconstruction technique Electronically signed by: Henrique Valerio MD (09/25/2018 8:23 PM) [facility]
[2018-09-25] MEDS ORDERED: DOXYCYCLINE HYCLATE 100 MG TABLET PO ONE (21:00)
[2018-09-25] MEDS ORDERED: ONDANSETRON PF 4 MG/2 ML VIAL. IV PRN (21:00)
[2018-09-25] MEDS ORDERED: ENOXAPARIN ** NOTE DOSE ** SYRINGE SQ ONE (21:00)
[2018-09-25 22:29] VITALS: BP 153/77
[2018-09-25 23:00] VITALS: BP 138/70
[2018-09-25] MEDS ORDERED: LEVO100T5 PO (23:22)
[2018-09-25] MEDS ORDERED: LOSA1TAB7 PO (23:22)
[2018-09-25] MEDS ORDERED: LANS15TA6 PO (23:22)
[2018-09-25] MEDS ORDERED: ASCO100T4 PO (23:24)
[2018-09-25] MEDS ORDERED: ZINC50TA2 PO (23:24)
[2018-09-26] VITALS (7 sets, daily range): BP systolic 104–170; BP diastolic 57–96
[2018-09-26] MEDS: IV RINGERS SOLUTION,LACTATED 1,000 ML IV SCH ×2 (00:36→03:23)
[2018-09-26] MEDS: ACETAMINOPHEN 325 MG TABLET PO PRN ×2 (03:13→20:43)
--- NOTE | 2018-09-26 07:56 | RAD ---
EXAM: Left upper extremity venous Doppler. HISTORY: Elevated d-dimer. COMPARISON: None. FINDINGS: Grayscale and Doppler analysis of the left upper extremity deep venous system was performed with graded compression and augmentation. The internal jugular, subclavian, axillary, brachial, basilic, cephalic, radial and ulnar veins were assessed. There is no evidence of deep venous thrombosis. IMPRESSION: 1. No evidence of deep venous thrombosis. Electronically signed by: Dolores Felix MD (09/26/2018 7:53 AM) [facility]
[2018-09-26] MEDS: IPRATRPIUM/ALBUTEROL 0.5/2.5MG 3 ML NEBU. NEB SCH ×4 (08:00→20:00)
[2018-09-26] MEDS: DOXYCYCLINE HYCLATE 100 MG TABLET PO SCH ×2 (09:04→20:43)
[2018-09-26] MEDS: LEVOTHYROXINE 100 MCG TABLET PO SCH (10:23)
[2018-09-26] MEDS: hydroCHLOROthiazide 25 MG TABLET PO SCH (10:24)
[2018-09-26] MEDS: LOSARTAN 50 MG TABLET. PO SCH (10:24)
[2018-09-26] MEDS: PANTOPRAZOLE 40 MG TABLET. PO SCH (10:36)
[2018-09-26 12:07] LABS: RHEUMATOID FACTOR 19.9 IU/mL (0.0-13.9)
[2018-09-26 14:04] LABS: HEMATOCRIT 37.2 % (36.0-47.0); HEMOGLOBIN 12.9 g/dL (12.0-15.5); RED BLOOD COUNT 4.37 x10^6/uL (3.50-5.40); RED CELL DISTRIBUTION WIDTH 13.1 % (11.5-14.5)
[2018-09-26 14:16] LABS: ALBUMIN 3.2 g/dL (3.4-5.0); ALBUMIN/GLOBULIN RATIO 0.8 (1.0-1.7); CALCIUM 8.8 mg/dL (8.5-10.1); GFR 56.9; TOTAL BILIRUBIN 0.4 mg/dL (0.2-1.0); TOTAL PROTEIN 7.1 g/dL (6.4-8.2)
[2018-09-26 14:21] LABS: POTASSIUM 3.6 mmol/L (3.5-5.1)
--- NOTE | 2018-09-26 18:34 | HP ---
ADMIT DATE: 09/25/2018 HISTORY OF PRESENT ILLNESS: The patient is a 58-year-old female patient who came to the Emergency Room, complaining of being sick for the last 2 weeks with fever, hypertension, not feeling well. She has been seen at [facility] twice and was also seen at [facility] where she was started on doxycycline. She was given IV Rocephin and finally Levaquin, but she continued to have low-grade fever. She has received Augmentin at [facility] then received a gram of Rocephin IV. She went to [facility] and was given doxycycline for acute sinusitis and eventually was given Levaquin at the Emergency Room of [facility]. She was seen actually on 09/08/2018, 09/09/2018 to 09/24/2018 for her complaints as well as visits to [place] and . In fact in [place], she has only had a CT scan of the head. She denied any travel. Denied any immunosuppression. Her malaise and fever is persistent and will usually rise at nighttime. She has been taking Tylenol for discomfort and fever. Her had an upper respiratory tract infection at the beginning of this month, but he is now well. PAST MEDICAL HISTORY: Significant for hypertension and hyperlipidemia. She was told the fatty liver, osteoarthritis, hypothyroidism and gastroesophageal reflux disease. The patient denied any tattooing, sharing needles, or IV drug abuse. She denied any blood transfusion. PAST SURGICAL HISTORY: Significant for tonsillectomy, , total abdominal hysterectomy and bilateral salpingo-oophorectomy. She has esophageal stricture that has been dilated numerous times. She has been dilating it twice a year for last 3 years. She also had had a colonoscopy. ALLERGIES: SHE IS ALLERGIC TO IV AND ORAL CONTRAST. MEDICATIONS: She is currently on following medications: She is on levofloxacin 750 mg p.o. daily. She is on losartan/hydrochlorothiazide 100/12.5 mg once a day, zinc gluconate for zinc 50 mg daily, lansoprazole for Prevacid 15 mg daily, levothyroxine sodium 100 mcg once a day, ascorbic acid 100 mg once a day. FAMILY HISTORY: She has one brother younger, one sister older. Her father is still alive at age of 83 and has congestive heart failure, has had pneumonia, coronary artery disease, coronary artery bypass graft surgery, and permanent pacemaker. Her mother is alive at age of 82 and has COPD and pulmonary hypertension on oxygen. Her brother apparently is known to have diabetes and chronic kidney disease. SOCIAL HISTORY: She is and has 1 son and 2 daughters. She quit smoking 14 years ago. She does not drink alcohol or use any recreational drugs. REVIEW OF SYSTEMS: The patient denied any blurring of vision, cataract, glaucoma or macular degeneration. Denied any earache, tinnitus or sensorineural deafness. Denied any nosebleeds, stuffy nose or postnasal drip. Denied any sore throat, sore tongue, toothache, hoarseness of voice or difficulty swallowing. She does continue to have problem with dysphagia to solid and liquid. She has had her esophagus stretched about 6 months ago by ____. She denied any diarrhea or constipation. Denied any hematemesis, melena or hematochezia. Denied any dysuria, frequency or hematuria. Denied any chest pain, shortness of breath, orthopnea, or paroxysmal nocturnal dyspnea. Denied any cough, phlegm or hemoptysis. She did complain of chills and fever, particularly late in the day. Of note, she was seen by dentist who cleaned her teeth about 2 weeks ago and since then, had developed fever. PHYSICAL EXAMINATION: GENERAL: When she arrived to the Emergency Room, she looked well and was clearly in no apparent respiratory distress. No pallor, jaundice, cyanosis, or thyromegaly. No jugular venous distension. No limb edema. VITAL SIGNS: Her heart rate was 80, blood pressure was 158/89, temperature was 99, respiratory rate 20, and oxygen saturation was 98%. HEAD, EYES, EARS, NOSE, AND THROAT: Showed normocephalic, atraumatic. NECK: Supple. HEART: Showed normal first and second heart sounds. No gallop or murmur. CHEST: Clear to auscultation. No crepitation or rhonchi. ABDOMEN: Distended, soft, nontender. No guarding or rigidity. No organomegaly. All hernial orifices intact. Bowel sounds normal. NEUROLOGIC: She was awake, alert, responding appropriately. All her cranial nerves are intact. EXTREMITIES: She moves extremities without difficulty. She ambulates without assistance or assistive devices, although she does complain that she has severe pain in her right hip joint. LABORATORY DATA: Her lab work showed a white cell count of 6700, hemoglobin 13, hematocrit 38, MCV 86 and platelet count 254,000 with normal manual differential. Her sedimentation rate was 27 mm. Her chemistry showed a serum sodium 138, potassium 3.8, chloride 100, bicarbonate 28, anion gap of 10, BUN 16, creatinine 1, estimated GFR was 57 mL per minute. Her glucose was 117, calcium was 9.6, magnesium was 2.1. Total bilirubin normal. AST, ALT, alkaline phosphatase are all elevated. Her CK was 72. C-reactive protein of 5.1. Beta natriuretic peptide was 263 and total protein was 7.6, albumin was 3.6 and lipase was 131 and TSH was 3.374. Her prothrombin time was 10. INR of 1, aPTT was 24. D-dimer was 2.74. Urinalysis showed the urine was yellow, clear with a pH of 7, specific gravity of 1.010. The urine was negative for protein, glucose, ketones, blood, nitrite, leukocyte esterase. There are no rbc's, no wbc's, and no bacteria. Her toxic screen was essentially negative. Her rheumatoid factor was high at 19.9. The upper limit of normal of 13.9. Her cyclic citrullinated peptide, IgG is still pending. Antinuclear antibody and double stranded DNA antibody is still pending. Her influenza A and B were negative. Her chest x-ray showed the heart size is normal. Mediastinal silhouette is normal. No pneumothorax, pulmonary opacities or pleural effusion. Thoracic mild disk osteophyte. Examination of the head and maxillofacial sinuses showed that no intracranial hemorrhage, mass, hydrocephalus and infarction. No acute ischemic changes. A 1 cm ostium of the right lateral frontal calvarium outer table, behind the skull imaged, orbits, and mastoid cells are unremarkable. The maxillofacial CT scan showed small cyst along the floor of the left maxillary sinus with minimal mucosal thickening. No opacification, masses or fluid within the frontal, ethmoidal, sphenoidal and maxillary sinuses. Carol bullosa of the middle nasal turbinate, maxilla, mandible, and orbits are all intact. No orbital edema or hematoma and the impression that the facial bones are intact. No evidence of sinusitis. Mild mucosal thickening of the small cyst at the floor of the left maxillary sinus. She did have Doppler ultrasound of her left upper extremity and the gu-scale and Doppler analysis of the left upper extremity, deep vein thrombosis was performed with graded compression and augmentation. The internal jugular, subclavian, axillary and brachial, basilic and cephalic, radial and ulnar veins are all assessed and there is no evidence of deep vein thrombosis IMPRESSION AND PLAN: In summary, this is a 58-year-old female patient coming with a low-grade fever, chills, and shaking according to her and lightheadedness usually and late in the day, has been going on for the last 2 weeks. She has dental workup. She has also abnormal liver enzymes. She also has labile hypertension. According to her, she was told to take her blood pressure medication only 3 times a week, which seems to be unusual. By definition, this lady has received already about 3 weeks' worth of different antibiotics including Augmentin, doxycycline, Rocephin and Levaquin without much improvement. My plan is to check her abdominal ultrasound, check her viral hepatitis serology. I would also order an echocardiogram to make sure that there is no evidence of endocarditis given the dental workup. MIKE MONACO MD DR: HUAN/flor JOB#: [id number] / [id number]
[2018-09-26] MEDS: LACTOBACILLUS RHAMNOSUS GG 1 CAPSULE. PO SCH (20:43)
[2018-09-27 05:35] VITALS: BP 115/62
--- NOTE | 2018-09-27 06:23 | EKG ---
[address] [address] Test Date: 2018-09-25 Test Time: 18:38:13 Pat Name: SANNA DIAZ Department: Room: Gender: F Adolescent Specialist: : [id number] Requested By: ALLIE GILBERT Order Number: [id number] Reading MD: Measurements Intervals Fowler Rate: 76 P: 30 UT: 124 QRS: 41 QRSD: 78 T: 35 QT: 368 QTc: 418 Interpretive Statements SINUS RHYTHM NORMAL ECG RI6.01 No previous ECG available for comparison
[2018-09-27] MEDS: PANTOPRAZOLE 40 MG TABLET. PO SCH (07:35)
[2018-09-27] MEDS: LEVOTHYROXINE 100 MCG TABLET PO SCH (07:35)
--- NOTE | 2018-09-27 07:59 | RAD ---
EXAM: RIGHT UPPER QUADRANT ULTRASOUND. HISTORY: Elevated liver enzymes. COMPARISON: None. FINDINGS: Sonographic evaluation of the right upper quadrant was performed. The liver appears normal in parenchymal echotexture. There are no focal lesions. The gallbladder is unremarkable without evidence of stones, wall thickening or pericholecystic fluid. There is no sonographic Woodson sign. The common duct measures 4 mm. The visualized portions of the head of the pancreas reveal no abnormality. The right kidney measures 10.7 cm. Cortical thickness and echogenicity are preserved. There is no hydronephrosis. The visualized portions of the abdominal aorta and inferior vena cava are grossly patent and normal in caliber. IMPRESSION: 1. Negative examination of the right upper quadrant. No biliary dilatation. Electronically signed by: Dolores Felix MD (09/27/2018 7:56 AM) [facility]
[2018-09-27] MEDS: DOXYCYCLINE HYCLATE 100 MG TABLET PO SCH ×2 (09:05→20:48)
[2018-09-27] MEDS: LACTOBACILLUS RHAMNOSUS GG 1 CAPSULE. PO SCH ×2 (09:05→20:48)
[2018-09-27 09:13] VITALS: BP 111/63
[2018-09-27] MEDS: hydroCHLOROthiazide 25 MG TABLET PO SCH (10:31)
[2018-09-27] MEDS: LOSARTAN 50 MG TABLET. PO SCH (10:31)
--- NOTE | 2018-09-27 15:15 | RAD ---
EXAM: CT OF THE CHEST, ABDOMEN AND PELVIS WITHOUT CONTRAST. HISTORY: Fever of unknown origin. TECHNIQUE: Computed tomography of the chest, abdomen and pelvis was performed without intravenous contrast. COMPARISON: 09/24/2018. FINDINGS: Bone windows reveal no suspicious lesions. There are no pathologically enlarged mediastinal or axillary lymph nodes. There is trace pericardial fluid. There is no pleural effusion. The heart is not enlarged. There are atherosclerotic calcifications of the coronary arteries. There is mild to moderate centrilobular emphysema. An uncalcified nodule in the right lower lobe measures 6 mm on image 40. There are no acute infiltrates. The liver, gallbladder, pancreas, adrenal glands, and kidneys are unremarkable. There are no renal or ureteral calculi or hydronephrosis. The spleen is moderately enlarged at 16.3 cm. The uterus is surgically absent. The appendix is not inflamed. There is no small bowel obstruction. There are no pathologically enlarged lymph nodes. IMPRESSION: 1. Moderate splenomegaly at 16.3 cm. 2. No inflammatory process is identified. 3. Mild to moderate centrilobular emphysema. 4. A 5 mm nodule in the right lower lobe is indeterminate. Follow-up is recommended in 6-12 months if long-term stability is not already known. *One or more of the following individualized dose reduction techniques were utilized for this examination: 1. Automated exposure control. 2. Adjustment of the mA and/or kV according to patient size. 3. Use of iterative reconstruction technique. Electronically signed by: Dolores Felix MD (09/27/2018 3:13 PM) [facility]
[2018-09-27 15:20] VITALS: BP 100/55
[2018-09-27 19:35] VITALS: BP 130/70
[2018-09-27] MEDS ORDERED: ACETAMINOPHEN 325 MG TABLET PO PRN (20:00)
[2018-09-27 23:15] VITALS: BP 102/55
[2018-09-28 06:34] VITALS: BP 108/62
[2018-09-28 06:44] LABS: BASO % 1 % (0-3); EOS # 0.3 x10^3/uL (0.0-0.7); EOS % 4 % (0-3); HEMATOCRIT 36.8 % (36.0-47.0); HEMOGLOBIN 12.6 g/dL (12.0-15.5); LYMPH # 4.2 x10^3/uL (1.0-4.8); LYMPH % 63 % (24-48); MEAN CORPUSCULAR HEMOGLOBIN 29 pg (25-35); MEAN CORPUSCULAR HGB CONC 34 g/dL (31-37); MEAN CORPUSCULAR VOLUME 85 fL (79-100); MONO # 0.5 x10^3/uL (0.0-1.1); MONO % 8 % (0-9); NEUT # 1.7 x10^3uL (1.8-7.7); NEUT % 25 % (31-73); PLATELET COUNT 215 x10^3/uL (140-400); RED BLOOD COUNT 4.32 x10^6/uL (3.50-5.40); RED CELL DISTRIBUTION WIDTH 13.3 % (11.5-14.5); WHITE BLOOD COUNT 6.8 x10^3/uL (4.0-11.0)
[2018-09-28 07:00] LABS: ALBUMIN/GLOBULIN RATIO 0.8 (1.0-1.7); GFR 56.9; POTASSIUM 3.8 mmol/L (3.5-5.1); TOTAL BILIRUBIN 0.3 mg/dL (0.2-1.0); TOTAL PROTEIN 6.8 g/dL (6.4-8.2)
[2018-09-28 07:57] LABS: % ATYL 14 % (0-0); % BANDS 1 % (0-9); % EOS 1 % (0-5); % MONOS 7 % (0-10); % OTHERS 2 % (0-0); % SEGS 31 % (35-66)
[2018-09-28 07:58] LABS: PLT ESTIMATE ADEQUATE (ADEQUATE)
[2018-09-28] MEDS: LEVOTHYROXINE 100 MCG TABLET PO SCH (08:14)
[2018-09-28] MEDS: PANTOPRAZOLE 40 MG TABLET. PO SCH (08:14)
[2018-09-28] MEDS: LACTOBACILLUS RHAMNOSUS GG 1 CAPSULE. PO SCH (08:15)
[2018-09-28] MEDS: LOSARTAN 50 MG TABLET. PO SCH (08:16)
[2018-09-28] MEDS: hydroCHLOROthiazide 25 MG TABLET PO SCH (08:17)
[2018-09-28] MEDS: DOXYCYCLINE HYCLATE 100 MG TABLET PO SCH (08:17)
[2018-09-28 10:46] VITALS: BP 126/80
[2018-09-28 14:49] VITALS: BP 119/75
--- NOTE | 2018-09-28 15:07 | PN ---
DATE: 09/27/2018 SUBJECTIVE: The patient is sitting on the edge of the bed, eating her lunch. Apparently, she continued to spike her temperature at nighttime, last night temperature went up to 101.2, and this morning she also has a low-grade temperature that went up to 100.8. We did an abdominal ultrasound, which basically showed the gallbladder is unremarkable without evidence of stones, wall thickening of the pericholecystic fluid. There is no sonographic Woodson sign. Common bile duct measures 4 mm. Visualized portion of head of pancreas revealed no abnormality. The right kidney measures 10.7 cm with cortical thickness and echogenicity are preserved. There is no hydronephrosis. The visualized portion of the abdominal aorta and inferior vena cava are grossly patent, normal in caliber. Her blood cultures are so far negative. Her Lyme disease is less than 0.91. Her influenza A and B were negative. Her rheumatoid factor is elevated at 19.9; however, cyclic citrullinated peptide, IgG, antinuclear antibody, double stranded DNA are still pending. Her liver enzymes were elevated; however, they are trending down. Her acute hepatitis profile and 24-hour urine for metanephrines, VMA are still pending at the time of this dictation. PHYSICAL EXAMINATION: GENERAL: When I examined her, she looked well and was clearly in no apparent respiratory distress. No pallor, jaundice, cyanosis, or thyromegaly. No jugular venous distension. No limb edema. VITAL SIGNS: Her heart rate was 84, blood pressure was 131/92, temperature was 100.8, respiratory rate was 20, and oxygen saturation was 94%. HEAD, EYES, EARS, NOSE AND THROAT: Showed normocephalic, atraumatic. NECK: Supple. HEART: Showed normal first and second heart sounds. No gallop, rub or murmur. CHEST: Clear to auscultation. No crepitation or rhonchi. ABDOMEN: Distended, soft, nontender. NEUROLOGIC: She is awake, alert, responding appropriately. All cranial nerves intact. She moves extremities without difficulty. She ambulates without assistance or assistive devices. ASSESSMENT: 1. Pyrexia of unknown origin, so far we have not really found any leads. Her liver enzymes were elevated and I did order hepatitis serology, the results are still pending. 2. She was seen by dentist and she did have extensive dental work up and since then, she developed fever and still concerned about the possibility of endocarditis, however, and I did order an echocardiogram though it was not done yet. 3. She has labile hypertension with a blood pressure that is quite variable and I did order 24-hour urine for normetanephrine and VMA, the results of which is still pending. She is known to have hyperlipidemia, nonalcoholic steatohepatitis, osteoarthritis, hypothyroidism, gastroesophageal reflux disease. PLAN: My plan is to arrange for a CT scan of the chest, abdomen and pelvis. Unfortunately, she has a CONTRAST ALLERGY TO THE ORAL AND IV CONTRAST, so we will do it without contrast. MIKE MONACO MD DR: HUAN/flor JOB#: [id number] / [id number]
--- NOTE | 2018-09-28 16:39 | CARD ---
MR#: [id number] Date of Study: 09/28/2018 Ordering Physician: MIKE MONACO, Referring Physician: MIKE MONACO Tech: Princess Farias RDCS APPROVED REPORT EXAM: Two-dimensional and M-mode echocardiogram with Doppler and color Doppler. Other Information Quality : Good INDICATION Infection:Rule out subacute bacterial endocarditis 2D DIMENSIONS RVDd2.8 (2.9-3.5cm)Left Atrium(2D)3.6 (1.6-4.0cm) IVSd0.9 (0.7-1.1cm)Aortic Root(2D)3.2 (2.0-3.7cm) LVDd4.2 (3.9-5.9cm)LVOT Diameter2.2 (1.8-2.4cm) PWd0.9 (0.7-1.1cm)LVDs2.2 (2.5-4.0cm) FS (%) 30.0 %SV59.7 ml LVEF(%)60.0 (>50%) Aortic Valve AoV Peak Myron.95.8cm/sAoV VTI15.2cm AO Peak GR.3.7mmHgAO Mean GR.2mmHg STU (VTI)3.35cm2 Mitral Valve MV E Blkqhmvt14.1cm/sMV DECEL [id number] MV A Yiokpkww61.8cm/sE/A Ratio1.1 Tricuspid Valve TR P. Jnkzvnkx965sm/sRAP ZOTPFDSA3kgCy TR Peak Gr.23jfPsOOME59kcMx LEFT VENTRICLE The left ventricle is normal size. There is normal left ventricular wall thickness. The left ventricu lar systolic function is normal and the ejection fraction is within normal range. The Ejection Fracti on is 55-60%. There is normal LV segmental wall motion. Transmitral Doppler flow pattern is Grade I-a bnormal relaxation pattern. RIGHT VENTRICLE The right ventricle is normal size. The right ventricular systolic function is normal. ATRIA The left atrium size is normal. The right atrium size is normal. The interatrial septum is intact wit h no evidence for an atrial septal defect or patent foramen ovale as noted on 2-D or Doppler imaging. AORTIC VALVE The aortic valve is normal in structure and function. Doppler and Color Flow revealed no significant aortic regurgitation. There is no significant aortic valvular stenosis. There is no aortic valvular v egetation. MITRAL VALVE The mitral valve is normal in structure and function. There is no evidence of mitral valve prolapse. There is no mitral valve stenosis or vegetation. Doppler and Color-flow revealed trace mitral regurgi tation. TRICUSPID VALVE The tricuspid valve is normal in structure and function. Doppler and Color Flow revealed trace tricus pid regurgitation. The PA pressure was estimated at 25 mmHg. There is no tricuspid valve prolapse or vegetation. There is no tricuspid valve stenosis. PULMONIC VALVE The pulmonary valve is normal in structure and function. Doppler and Color Flow revealed trace pulmon ic valvular regurgitation. There is no pulmonic valvular stenosis. GREAT VESSELS The aortic root is normal in size. The ascending aorta is normal in size. The IVC is normal in size a nd collapses >50% with inspiration. PERICARDIAL EFFUSION There is no evidence of significant pericardial effusion. Critical Notification Critical Value: No <Conclusion> The left ventricle is normal size. The left ventricular systolic function is normal and the ejection fraction is within normal range. The Ejection Fraction is 55-60%. There is no significant aortic valvular stenosis. Doppler and Color Flow revealed no significant aortic regurgitation. Doppler and Color-flow revealed trace mitral regurgitation. Doppler and Color Flow revealed trace tricuspid regurgitation. The PA pressure was estimated at 25 mmHg. No evidence of a vegetation on this study. If clinical suspicion is sufficient would consider a trans esophageal echo. Signed by : Beto Dimas MD Electronically Approved : 09/28/2018 16:38:42
[2018-09-28] MEDS ORDERED: POLYETHYLENE GLYCOL 3350 17 GM PACKET. PO PRN (17:15)
[2018-09-28 17:45] VITALS: BP 135/82
[2018-09-28] MEDS ORDERED: ONDANSETRON PF 4 MG/2 ML VIAL. IV PRN (17:45)
[2018-09-29 12:20] LABS: % LYMPHS 44 % (24-48)
[2018-09-29 21:11] LABS: CYCLIC CITRULLIN PEP AB 5 units (0-19)
[2018-09-30 07:10] LABS: ANTI-DS DNA 2 IU/mL (0-9)
[2018-09-30 13:10] LABS: B HENSELAE IGG Negative titer (Neg:<1:320); B QUINTANA IGG Negative titer (Neg:<1:320); B QUINTANA IGM Negative titer (Neg:<1:100); BAR HENSELAE IGM Negative titer (Neg:<1:100)
[2018-09-30 17:10] LABS: ANA INTERP Negative (.)
[2018-10-03 10:06] LABS: VMA UR 1.5 mg/L (Undefined)
== END 2018-09-28 19:15 | disposition short-term general hospital (02) | DRG 864 ==
LOC: ER 17:21 → ICU 21:00 → ER 21:58 → 1 SOUTH 09-28 06:30
PROVIDERS: ADMIT Internal Medicine; ATTEND Internal Medicine
DX: R50.9 Fever, unspecified (principal); D16.9 Benign neoplasm of bone and articular cartilage, unspecified; E03.9 Hypothyroidism, unspecified; E78.5 Hyperlipidemia, unspecified; F41.9 Anxiety disorder, unspecified; I10 Essential (primary) hypertension; I25.10 Atherosclerotic heart disease of native coronary artery without angina pectoris; J01.90 Acute sinusitis, unspecified; J43.9 Emphysema, unspecified; K21.9 Gastro-esophageal reflux disease without esophagitis; K75.81 Nonalcoholic steatohepatitis (NASH); M19.90 Unspecified osteoarthritis, unspecified site; Z82.49 Family history of ischemic heart disease and other diseases of the circulatory system; Z86.711 Personal history of pulmonary embolism; Z87.891 Personal history of nicotine dependence; Z90.710 Acquired absence of both cervix and uterus; Z82.5 Family history of asthma and other chronic lower respiratory diseases
CPT/HCPCS: 36415; 70450; 70486; 71046; 71250; 74176; 76705; 80048; 80053; 80076; 80307; 81001; 82550; 83690; 83735; 83835; 83880; 84443; 84484; 84585; 85007; 85025; 85027; 85379; 85610; 85651; 85730; 86000; 86038; 86140; 86200; 86431; 86592; 86611; 86617; 86618; 86638; 86705; 86709; 86803; 87040; 87340; 87641; 87801; 87804; 93005; 93306; 93971; 96360; 96372; J1650; J2405; J7120; 99285-25

== ENCOUNTER → 2019-04-09 | Outpatient (CLI) | payer OTHER ==
[~2019-04-09] MED LIST changes: +ASCO100T4 PO; +LANS15TA6 PO; +LEVO100T5 PO; +LOSA1TAB7 PO; +ZINC50TA2 PO
--- NOTE | 2019-04-09 15:59 | RAD ---
CT of the chest without contrast 04/09/2019 INDICATION: Pulmonary nodule. COMPARISON STUDY: CT of the chest, abdomen, and pelvis September 27, 2018 TECHNIQUE: Multidetector CT imaging of the chest was performed without contrast. FINDINGS: Superior mediastinum is obscured secondary to beam hardening artifact from the thyroid shield, request patient. Heart size is normal. No pericardial effusion is seen. Scattered small mediastinal lymph nodes are comparison study. Coronary calcification is noted. No new or pathologically enlarged mediastinal adenopathy is appreciated. No acute abnormality of the upper abdomen is identified. There is no pneumothorax or pleural effusion. Emphysematous changes are seen throughout the lungs. Correlate with history of COPD. Mild lower lobe bronchiectasis may be present. There is a noncalcified nodule in the basilar right lower lobe measuring 6 mm in diameter, unchanged from comparison study when measured in a comparable fashion and scattered 1 to 2 mm nodules are seen throughout the bilateral lungs, also unchanged. No new pulmonary nodule is identified. IMPRESSION: 1. Stable appearance 6 mm nodule, right lower lobe. CT follow-up to ensure two-year stability recommended 2. Otherwise stable appearance of the chest CT DOSING PQRS STATEMENT: One or more of the following individualized dose reduction techniques were utilized for this examination: 1. Automated exposure control 2. Adjustment of the mA and/or kV according to patient size 3. Use of iterative reconstruction technique Electronically signed by: Refugio Morris MD (04/09/2019 3:56 PM) [facility]
== END | disposition home or self-care (01) ==
LOC: CT 12:20
PROVIDERS: ATTEND Nurse Practitioner
DX: J43.9 Emphysema, unspecified (principal); R91.1 Solitary pulmonary nodule; I25.10 Atherosclerotic heart disease of native coronary artery without angina pectoris
CPT/HCPCS: 71250

== ENCOUNTER 2020-01-20 10:03 | Emergency (ER) | payer OTHER ==
[~2020-01-20] VITALS: Ht 172.7 cm; Wt 100.0 kg
[~2020-01-20 10:03] MED LIST changes: +ZINC50TA10 PO; -ZINC50TA2 PO
[2020-01-20] MEDS ORDERED: methylPREDNISolone SOD SUCC PF 125 MG/2 ML VIAL. IM ONE (10:30)
[2020-01-20] MEDS ORDERED: FAMOTIDINE 20 MG TABLET PO ONE (10:30)
[2020-01-20] MEDS ORDERED: diphenhydrAMINE 50 MG/ML VIAL IM ONE (12:00)
[2020-01-20] MEDS ORDERED: METH4TAB2 PO (12:54)
[2020-01-20] MEDS ORDERED: HYDR50TA PO (12:54)
[2020-01-20] MEDS ORDERED: FAMO-63 PO (12:54)
--- NOTE | 2020-01-20 12:54 | PHYS DOC ---
Past History Past Medical History: Bronchitis, COPD, Heart Disease, Hypothyroid Past Surgical History: Hysterectomy, Tonsillectomy Smoking: Quit Greater Than 1 Year Alcohol Use: None Drug Use: None General Adult EDM: Chief Complaint: SKIN PROBLEM HPI: HPI: Patient is a 59 year old female who presents for evaluation of diffuse hives and itching. Symptoms have been progressing for about 2 days. Patient is a known positive Covid patient. Her symptoms started after she had taken a dose of albuterol but then they became worse over time. There is no reported wheezing, throat swelling or difficulty swallowing etc. Patient is in mild to early moderate distress on arrival. Patient was diagnosed with Covid about 10 days ago. Patient is never had itching like this in the past Review of Systems: Review of Systems: Constitutional: Denies fever or chills Eyes: Denies change in visual acuity HENT: Denies nasal congestion or sore throat Respiratory: Denies cough minimal shortness of breath Cardiovascular: Denies chest pain or edema GI: Denies abdominal pain, nausea, vomiting, bloody stools or diarrhea : Denies dysuria Musculoskeletal: Denies back pain or joint pain Integument: diffuse hives Neurologic: Denies headache, focal weakness or sensory changes Endocrine: Denies polyuria or polydipsia Lymphatic: Denies swollen glands Psychiatric: Denies depression or anxiety Current Medications: Current Meds: Current Medications Medications (Trade) Dose Ordered Sig/Yanna Start Time Stop Time Status Last Admin Dose Admin Diphenhydramine HCl (Benadryl) 50 mg 1X ONCE 01/20/20 12:00 01/20/20 12:01 DC 01/20/20 12:30 50 MG Famotidine (Pepcid) 20 mg 1X ONCE 01/20/20 10:30 01/20/20 10:33 DC 01/20/20 10:48 20 MG Methylprednisolone Sodium Succinate (SOLU-Medrol 125MG VIAL) 125 mg 1X ONCE 01/20/20 10:30 01/20/20 10:33 DC 01/20/20 10:49 125 MG Allergies: Allergies: Allergies Coded Allergies Type Severity Reaction Last Updated Verified Iodinated Contrast Media Allergy Intermediate 01/20/20 Yes Physical Exam: PE: Constitutional: Well developed, well nourished, mild to moderate acute distress, non-toxic appearance. [] HENT: Normocephalic, atraumatic, bilateral external ears normal, oropharynx moist, no oral exudates, nose normal, no posterior pharyngeal swelling [] Eyes: PERRL, EOMI, conjunctiva normal, no discharge. [] Neck: Normal range of motion, no tenderness, supple, no stridor. [] Cardiovascular:Heart rate regular rhythm, no murmur [] Lungs & Thorax: Bilateral breath sounds clear to auscultation [] Abdomen: Bowel sounds normal, soft, no tenderness, no masses, no pulsatile masses. [] Skin: Warm, dry, diffuse hives on trunk, arms and legs. [] Back: No tenderness. [] Extremities: No tenderness, no cyanosis, ROM intact, no edema. [] Neurologic: Alert and oriented X 3, normal motor function, normal sensory function, no focal deficits noted. [] Psychologic: Affect normal, judgement normal, mood normal. [] Current Patient Data: Vital Signs: Vital Signs Date Time Temp Pulse Resp B/P (MAP) Pulse Ox O2 Delivery O2 Flow Rate FiO2 01/20/20 10:18 98.3 70 18 151/78 (102) Room Air EKG: EKG: [] Radiology/Procedures: Radiology/Procedures: [] Heart Score: Risk Factors: Risk Factors: DM, Current or recent (<one month) smoker, HTN, HLP, family history of CAD, obesity. Risk Scores: Score 0 - 3: 2.5% MACE over next 6 weeks - Discharge Home Score 4 - 6: 20.3% MACE over next 6 weeks - Admit for Clinical Observation Score 7 - 10: 72.7% MACE over next 6 weeks - Early Invasive Strategies Course & Med Decision Making: Course & Med Decision Making Pertinent Labs and Imaging studies reviewed. (See chart for details) [] Dragon Disclaimer: Dragon Disclaimer: This electronic medical record was generated, in whole or in part, using a voice recognition dictation system. 1245 stable, feeling somewhat better at this time after Benadryl injection. Patient will need prescription for Atarax, Medrol Dosepak and Pepcid. Supportive care recommended. The cause of her itching and allergies is unclear but may be related to her known Covid infection. Albuterol she received less than 48 hours ago is less likely to cause this reaction Departure Departure: Impression: Primary Impression: Allergic reaction Qualified Codes: T78.40XA - Allergy, unspecified, initial encounter Additional Impression: COVID-19 Disposition: 01 DC HOME SELF CARE/HOMELESS Condition: STABLE Referrals: ANTON MACARIO (PCP) Patient Instructions: Nicolle Additional Instructions: Take medication as directed, call and see your doctor right away in follow-up. Return if worsen You have been tested for or diagnosed with COVID-19. It is an infection caused by a new type of coronavirus. COVID-19 will cause cold-like or mild flu symptoms in most. It can cause more severe symptoms like problems breathing in some. There is no treatment for COVID-19. The body will clear the infection over time. Self-care will help to ease discomfort. Steps to Take: Self-Care Rest as needed. Healthy habits may help you feel better. Steps include: Choose healthy foods including fruits and vegetables. Drink water throughout the day. Get plenty of sleep each night. If you smoke, try to quit. It may ease breathing. Avoid alcohol. Keep Others Healthy The virus can spread to others. Droplets are released every time you sneeze or cough. The droplets can get into the mouth, nose, or eyes of people near you and lead to infection. To lower the chances of spreading COVID-19 to others: Stay at home until your doctor has said it is safe to leave. If you tested positive this will mean staying isolated until both of the following are true: At least 7 days have passed since the start of illness. You are free of fever for at least 72 hours without the use of medicine. During this time: - Avoid public areas, events, or transportation. Do not return to work or school until your doctor has said it is safe to do so. - Call ahead if you need to go to a medical center. Let them know you may have COVID-19. It will help them guide you where to go. They may also ask you to wear a facemask when you come to the office. - If you call for emergency medical services, let them know you may have COVID- 19. While at home: - Try to avoid close contact with others. Stay about 6 feet away. - If possible, spend most of your time in a separate room from others. - Use a face mask if you will be in close contact with others such as sharing a room or vehicle. - Have someone wipe down common surfaces in the home. Use household manager technical sales every day on areas like doorknobs, counters, or sinks. - Cough or sneeze into a tissue. Throw the tissue away right after use. If a tissue is not available, cough or sneeze into your elbow. - Wash your hands often. Wash them after sneezing or coughing. Use soap and water and wash for at least 20 seconds. Alcohol based hand wool cleaner can be used if soap and water is not available. - Do not prepare food for others. Avoid sharing personal items like forks, spoons, or toothbrushes. - Avoid close contact with pets while you are sick. There is no evidence of the virus passing to pets. This is a safety step until more is known about this virus. Isolation can be frustrating. Social interaction can help. Keep in touch with friends and family through phone and tech options. You can still interact with others in your home, just keep a safe distance of about 6 feet. Follow-up: Your doctors office will check in with you to see if there are any changes in your health. You may be asked to keep track of symptoms to share with them. They will also let you know when you are clear to be in public again. Problems to Look Out For: Contact your doctor if your recovery is not going as you expect. Get emergency care if you have problems such as: - Trouble breathing - Nonstop chest pain or pressure - Changes in awareness, confusion, or problems waking - Lips or face have bluish color - Worsening of symptoms If you think you have an emergency, call for emergency medical services right away. As taken from [facility] Scripts Famotidine (PEPCID) 20 Mg Tablet 1 TAB PO BID for gastritis, #20 TAB 0 Refills Prov: TOAN VALVERDE DO 01/20/20 Hydroxyzine Hcl (HYDROXYZINE HCL) 50 Mg Tablet 50 MG PO TID for hives/allergies for 7 Days, #21 TAB Prov: VALVERDETOAN DO 01/20/20 Methylprednisolone (MEDROL) 4 Mg Tab.ds.pk 1 PKG PO UD for allergic reaction, #1 PKG Prov: ABRAMTOAN Nathanael DO 01/20/20 TOAN VALVERDE DO Jan 20, 2020 12:54
[2020-01-20 14:00] VITALS: BP 146/58
== END 2020-01-20 14:01 | disposition home or self-care (01) ==
LOC: ER 10:03
DX: U07.1 COVID-19 (principal); T48.6X5A Adverse effect of antiasthmatics, initial encounter; R50.9 Fever, unspecified; L29.9 Pruritus, unspecified; E03.9 Hypothyroidism, unspecified; I51.9 Heart disease, unspecified; J44.9 Chronic obstructive pulmonary disease, unspecified; Z90.710 Acquired absence of both cervix and uterus; Z90.89 Acquired absence of other organs; Z87.891 Personal history of nicotine dependence; Z91.040 Latex allergy status; Y92.89 Other specified places as the place of occurrence of the external cause
CPT/HCPCS: 96372; 99284; J1200; J2930

== ENCOUNTER 2021-02-07 14:59 | Emergency (ER) | payer OTHER ==
[~2021-02-07] VITALS: Ht 172.7 cm; Wt 98.5 kg
[~2021-02-07 14:59] MED LIST changes: +FAMO-63 PO; +HYDR50TA PO; +METH4TAB2 PO
--- NOTE | 2021-02-07 15:40 | PHYS DOC ---
Past History Past Medical History: Bronchitis, CAD, COPD, Diverticulitis, GERD, Heart Disease, Hypertension, Hypothyroid, Renal Disease Additional Past Medical Histor: hiatal hernia Past Surgical History: , Hysterectomy, Oophorectomy, Tonsillectomy Smoking: Quit Greater Than 1 Year Alcohol Use: None Drug Use: None General Adult EDM: Chief Complaint: ABDOMINAL PAIN HPI: HPI: Patient is 60 year-old female with past medical history of gastritis, diverticulitis, hiatal hernia, GERD is presenting today with belly pain is been going on for about 3 weeks. Patient states that she did go to urgent care with this pain and they sent her down to the emergency department. Patient states that the pain is mostly in the left upper quadrant. Patient states she feels a lot of pressure, gas, and belching. Patient states she has not eaten in order to not get bloated. Patient states she has been consuming mostly liquids for the past week. Because every time she eats she gets bloated. Patient states that she is also having some bilateral shoulder pain that is new that started about 3 weeks ago as well. Patient states that she does see GI every year for an esophageal stricture. Patient does state that she gets scoped every year. States the only thing that is changed shortly in the last couple months that she started taking high doses of turmeric. She states she also took Prilosec and sucralfate yesterday to help with the pain. She denies any vomiting but does endorse nausea. Patient denies chest pain, shortness of breath, syncope, weakness, numbness, or tingling. Review of Systems: Review of Systems: Constitutional: Denies fever or chills Eyes: Denies redness or eye pain HENT: Denies nasal congestion or sore throat Respiratory: Denies cough or shortness of breath Cardiovascular: Denies chest pain or palpitations GI: Reports abdominal pain and nausea but denies vomiting : Denies dysuria or hematuria Musculoskeletal: Endorses some bilateral shoulder pain and back pain Integument: Denies rash or skin lesions Neurologic: Denies headache, focal weakness or sensory changes Complete systems were reviewed and found to be within normal limits, except as documented in this note. Current Medications: Current Meds: Current Medications Medications (Trade) Dose Ordered Sig/Yanna Start Time Stop Time Status Last Admin Dose Admin Sodium Chloride 1,000 ml @ 1,000 mls/hr 1X ONCE 02/07/21 15:45 02/07/21 16:44 UNV Allergies: Allergies: Allergies Coded Allergies Type Severity Reaction Last Updated Verified Iodinated Contrast Media Allergy Intermediate 02/07/21 Yes egg Allergy Unknown Nausea 02/07/21 Yes Physical Exam: PE: Constitutional: Well developed, well nourished, no acute distress, non-toxic appearance HENT: Normocephalic, atraumatic Eyes: PERRL, EOMI, conjunctiva normal, no discharge Neck: Normal range of motion, no tenderness, supple Lungs & Thorax: No respiratory distress, equal chest rise and fall Abdomen: Soft, tenderness to palpation in the left upper quadrant and some tenderness diffusely, belly is significantly bloated and tense but there is no rebound, guarding, rigidity Skin: Warm, dry, no erythema, no rash Back: No tenderness, no CVA tenderness Extremities: No tenderness, ROM intact, no edema Neurologic: Alert and oriented X 3, normal motor function, normal sensory function, no focal deficits noted Psychologic: Affect normal, judgment normal Current Patient Data: Vital Signs: Vital Signs Date Time Temp Pulse Resp B/P (MAP) Pulse Ox O2 Delivery O2 Flow Rate FiO2 02/07/21 15:16 98.7 73 18 162/101 (121) 97 Room Air EKG: EK: Normal sinus rhythm with a rate of 62 bpm, no ST segment changes, T wave inversions in V1, normal axis, SD 146 ms, QRS 76 ms, QT/QTc 388/3186 ms Radiology/Procedures: Radiology/Procedures: PROCEDURE: CT ABDOMEN PELVIS WO CONTRAST Exam: CT of abdomen and pelvis without contrast INDICATION: Upper abdominal pain TECHNIQUE: Sequential axial images through the abdomen and pelvis obtained without IV contrast. Sagittal and coronal reformatted images were reconstructed from the axial data and reviewed. Exposure: One or more of the following in the visualized dose reduction techniques were utilized for this examination: 1. Automated exposure control 2. Adjustment of the MA and/or KV according to patient size 3. Use of iterative of reconstructive technique Comparisons: 09/27/2018 FINDINGS: Heart size is normal. No pericardial effusion. There is a 6 mm nodule at the right lower lobe series 2 image 33, stable from study in 2019. No pleural effusion. Evaluation solid organs is limited noncontrast technique. Liver, spleen, pancreas, gallbladder and adrenals are unremarkable. Bilateral nonobstructing renal calculi are noted. No ureteral calculi are seen. Bladder is partially distended and not well evaluated. Uterus is absent. No abnormal adnexal mass. Scattered diverticulosis noted in the sigmoid colon without evidence of acute diverticulitis. Moderate amount stool in the colon. Appendix is normal. No free intra-abdominal air or fluid. No obstruction. Abdominal aorta has a normal course and caliber. No enlarged intra-abdominal lymph nodes are identified. No suspicious osseous lesions or acute fractures. IMPRESSION:. 1. Nonobstructing renal calculi noted bilaterally. No ureteral calculi or evidence for obstructive uropathy. 2. Diverticulosis without evidence of acute diverticulitis. Electronically signed by: Joy Javier MD (02/07/2021 4:35 PM) [facility] Heart Score: C/O Chest Pain: No Course & Med Decision Making: Course & Med Decision Making 60-year-old female with past medical history of gastritis, diverticulitis, hiatal hernia, GERD is presenting today with left upper quadrant pain that is been going on for about 3 weeks. Patient did state that she went to the urgent care and they sent her here. Patient does follow with GI every year but was not able to get into an appoint with that her GI doctor. The scan showed bilateral kidney stones that are nonobstructing. No free fluid or obstruction seen on CT scan. Labs are within normal limits with no signs of infection. Patient's urine is also within normal limits. Patient is instructed to follow-up with her GI doctor or primary care doctor. However, if symptoms worsen patient is instructed to return to the emergency department. Patient stable for discharge with outpatient follow-up with PCP and GI. Isela scussed findings and plan with patient, who acknowledges understanding and agreement. Nery Disclaimer: Nery Disclaimer: This electronic medical record was generated, in whole or in part, using a voice recognition dictation system. Departure Departure: Impression: Primary Impression: Abdominal pain Qualified Codes: R10.84 - Generalized abdominal pain Disposition: HOME / SELF CARE / HOMELESS Condition: STABLE Referrals: ANTON MACARIO (PCP) Patient Instructions: Abdominal Pain (Nonspecific), Constipation, Adult, [id number], Gastritis, Adult, [id number] Additional Instructions: Increase fluid hydration. Follow closely with your GI specialist. Scripts Magnesium Citrate (MAGNESIUM CITRATE) 296 Ml Solution 296 ML PO ONCE PRN for CONSTIPATION, #296 ML Prov: HARSH GOLDBERG DO 02/07/21 Sennosides/Docusate Sodium (Colace 2-in-1 Tablet) 1 Each Tablet 1 TAB PO QHS for Constipation prevention for 30 Days, #30 TAB 0 Refills Take each tablet with 8 oz of water Prov: HARSH GOLDBERG DO 02/07/21 Pantoprazole Sodium (PROTONIX) 40 Mg Tablet.dr 1 TAB PO DAILY for Gastritis, #20 TAB Prov: HARSH GOLDBERG DO 02/07/21 HARSH GOLDBERG DO Feb 07, 2021 15:40
[2021-02-07] MEDS ORDERED: IV NORMAL SALINE 1,000ML 1,000 ML IV ONE (15:45)
[2021-02-07] MEDS ORDERED: LABETALOL 20 MG/4 ML DISP.SYRIN. IVP ONE (16:15)
--- NOTE | 2021-02-07 16:26 | EKG ---
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
--- NOTE | 2021-02-07 16:37 | RAD ---
Exam: CT of abdomen and pelvis without contrast INDICATION: Upper abdominal pain TECHNIQUE: Sequential axial images through the abdomen and pelvis obtained without IV contrast. Sagit meli and coronal reformatted images were reconstructed from the axial data and reviewed. Exposure: One or more of the following in the visualized dose reduction techniques were utilized for this examination: 1. Automated exposure control 2. Adjustment of the MA and/or KV according to patient size 3. Use of iterative of reconstructive technique Comparisons: 09/27/2018 FINDINGS: Heart size is normal. No pericardial effusion. There is a 6 mm nodule at the right lower lobe series 2 image 33, stable from study in 2019. No pleural effusion. Evaluation solid organs is limited noncontrast technique. Liver, spleen, pancreas, gallbladder and adrenals are unremarkable. Bilateral nonobstructing renal calculi are noted. No ureteral calculi are seen. Bladder is partially distended and not well evaluated. Uterus is absent. No abnormal adnexal mass. Scattered diverticulosis noted in the sigmoid colon without evidence of acute diverticulitis. Moderat e amount stool in the colon. Appendix is normal. No free intra-abdominal air or fluid. No obstruction . Abdominal aorta has a normal course and caliber. No enlarged intra-abdominal lymph nodes are identified. No suspicious osseous lesions or acute fractures. IMPRESSION:. 1. Nonobstructing renal calculi noted bilaterally. No ureteral calculi or evidence for obstructive u ropathy. 2. Diverticulosis without evidence of acute diverticulitis. Electronically signed by: Joy Javier MD (02/07/2021 4:35 PM) [facility]
[2021-02-07 16:53] LABS: BASO % 1 % (0-3); EOS # 0.4 x10^3/uL (0.0-0.7); EOS % 6 % (0-3); HEMATOCRIT 38.2 % (36.0-47.0); HEMOGLOBIN 13.1 g/dL (12.0-15.5); LYMPH # 2.6 x10^3/uL (1.0-4.8); LYMPH % 40 % (24-48); MEAN CORPUSCULAR HEMOGLOBIN 30 pg (25-35); MEAN CORPUSCULAR HGB CONC 34 g/dL (31-37); MEAN CORPUSCULAR VOLUME 87 fL (79-100); MONO # 0.4 x10^3/uL (0.0-1.1); MONO % 7 % (0-9); NEUT # 3.1 x10^3uL (1.8-7.7); NEUT % 47 % (31-73); PLATELET COUNT 199 x10^3/uL (140-400); RED BLOOD COUNT 4.41 x10^6/uL (3.50-5.40); RED CELL DISTRIBUTION WIDTH 13.6 % (11.5-14.5); WHITE BLOOD COUNT 6.6 x10^3/uL (4.0-11.0)
[2021-02-07 17:21] LABS: CALCIUM 8.6 mg/dL (8.5-10.1); CREATININE 0.8 mg/dL (0.6-1.0); GFR 73.2; POTASSIUM 3.7 mmol/L (3.5-5.1)
[2021-02-07 17:44] LABS: ALBUMIN 3.7 g/dL (3.4-5.0); ALBUMIN/GLOBULIN RATIO 1.3 (1.0-1.7); TOTAL BILIRUBIN 0.2 mg/dL (0.2-1.0); TOTAL PROTEIN 6.6 g/dL (6.4-8.2)
[2021-02-07 18:25] LABS: BACTERIA,URINE 0 /HPF (0-FEW); BILIRUBIN,URINE NEG (NEG); CLARITY,URINE CLEAR; COLOR,URINE YELLOW; GLUCOSE,URINE NEG (NEG); NITRITE,URINE NEG (NEG); RBC,URINE 0 /HPF (0-2); SQUAMOUS EPITHELIAL CELL,UR FEW /LPF; UROBILINOGEN,URINE 0.2 mg/dL (0.2 mg/dL); WBC,URINE OCC /HPF (0-4)
[2021-02-07] MEDS ORDERED: MAGN296S68 PO (19:14)
[2021-02-07] MEDS ORDERED: PANT40TA3 PO (19:14)
[2021-02-07] MEDS ORDERED: SENN-121 PO (19:14)
[2021-02-07 19:22] VITALS: BP 153/67
== END 2021-02-07 19:22 | disposition home or self-care (01) ==
LOC: ER 14:59
DX: R10.84 Generalized abdominal pain (principal); M25.511 Pain in right shoulder; M25.512 Pain in left shoulder; I25.10 Atherosclerotic heart disease of native coronary artery without angina pectoris; J44.9 Chronic obstructive pulmonary disease, unspecified; K21.9 Gastro-esophageal reflux disease without esophagitis; I11.0 Hypertensive heart disease with heart failure; E03.9 Hypothyroidism, unspecified; Z87.891 Personal history of nicotine dependence; Z98.890 Other specified postprocedural states; Z90.710 Acquired absence of both cervix and uterus; Z90.722 Acquired absence of ovaries, bilateral; Z91.041 Radiographic dye allergy status; Z91.012 Allergy to eggs
CPT/HCPCS: 36415; 74176; 80053; 81001; 82553; 83605; 83690; 83735; 84484; 85025; 93005; 96360; 99285; J7030

== ENCOUNTER → 2021-05-21 | Outpatient (CLI) | payer OTHER ==
[~2021-05-21] MED LIST changes: +MAGN296S68 PO; +PANT40TA3 PO; +SENN-121 PO
[2021-05-21 16:15] LABS: BASO % 1 % (0-3); EOS # 0.4 x10^3/uL (0.0-0.7); EOS % 6 % (0-3); HEMATOCRIT 40.4 % (36.0-47.0); HEMOGLOBIN 13.4 g/dL (12.0-15.5); LYMPH # 2.9 x10^3/uL (1.0-4.8); LYMPH % 36 % (24-48); MEAN CORPUSCULAR HEMOGLOBIN 29 pg (25-35); MEAN CORPUSCULAR HGB CONC 33 g/dL (31-37); MEAN CORPUSCULAR VOLUME 87 fL (79-100); MONO # 0.5 x10^3/uL (0.0-1.1); MONO % 6 % (0-9); NEUT # 4.2 x10^3uL (1.8-7.7); NEUT % 52 % (31-73); PLATELET COUNT 239 x10^3/uL (140-400); RED BLOOD COUNT 4.62 x10^6/uL (3.50-5.40); RED CELL DISTRIBUTION WIDTH 13.7 % (11.5-14.5)
[2021-05-21 16:23] LABS: CALCIUM 9.7 mg/dL (8.5-10.1); CREATININE 0.9 mg/dL (0.6-1.0); GFR 63.9; TOTAL BILIRUBIN 0.3 mg/dL (0.2-1.0)
== END ==
LOC: LAB 15:39
PROVIDERS: ATTEND Nurse Practitioner
DX: R42 Dizziness and giddiness (principal)
CPT/HCPCS: 36415; 80053; 85025

== ENCOUNTER → 2021-07-25 | Outpatient (CLI) | payer OTHER ==
--- NOTE | 2021-07-25 08:24 | RAD ---
INDICATION: Reason: LUQ PAIN AND BULGING, SUSPECTED HERNIA / Spl. Instructions: / History: COMPARISON: January 2021 IMPRESSION: Soft tissue ultrasound: Focused ultrasound images are obtained of the left lower quadrant of the abdomen. No drainable fluid collection or mass is seen in the subcutaneous soft tissues. A definite hernia def ect is not seen. Electronically signed by: Aston Irby MD (07/25/2021 8:21 AM) [id number]
== END ==
LOC: US 07:48
PROVIDERS: ATTEND Clinical Nurse Specialist Family Health
DX: R10.9 Unspecified abdominal pain (principal)
CPT/HCPCS: 76705